=== PATIENT | female | born 1960 | race Caucasian/White ===

== ENCOUNTER 2020-09-22 09:08 | Emergency (ER) | payer OTHER, SELFPAY ==
[2020-09-22 09:14] VITALS: BP 126/55; PULSE 84; RESP 16; TEMP 36.5; O2SAT 98
--- NOTE | 2020-09-22 10:10 | ED.URI ---
HPI - URI/Sore Throat General Chief Complaint: Upper Respiratory Infection Stated Complaint: sinus hoyt/sinus pressure Source: patient and RN notes reviewed Limitations: no limitations History of Present Illness HPI Narrative: The patient, non-smoker/nondrinker, presents with respiratory symptoms. Patient states she has about half week history of frontal maxillary/sinus headache, dry cough, congestion. No fever measured, CP, loss of taste/smell, S OB, calf pain/edema, precordial chest pain, sore throat, earache, known RAD, wheezing/sneezing, prior covid. She reports has been exposed to a patient positive for Covid at a recent family get together last week; symptoms are mild, she would like a refill of her inhaler for the cough Related Data Home Medications Medication Instructions Recorded Confirmed desvenlafaxine succinate 25 mg 12.5 mg PO DAILY tablet 10/15/19 09/22/20 tablet,extended release 24 hr Allergies Allergy/AdvReac Type Severity Reaction Status Date / Time codeine AdvReac Mild Nausea Verified 09/22/20 09:32 Review of Systems Review of Systems: Narrative: General/Constitutional: No weight loss,fever Eyes: N0: Redness,discharge Ears/Nose/Throat: No: Epistaxis,ear discharge Respiratory: Denies: Hemoptysis Gastrointestinal: No Vomiting, Bleeding-rectal Skin: No Lumps, eruption Neurologic: No Focal Weakness,Sz Hematologic: Denies: Petechiae/Purpura Psychiatric: No: Suicida ideationl All Other Systems: Reviewed and Negative [facility] Past Medical History Medical History (Updated 09/22/20 @ 09:46 by Willy Carson MD) Anxiety and depression Breast cancer GERD (gastroesophageal reflux disease) HX: breast cancer UTI (urinary tract infection) Surgical History Surgical History H/O mastectomy History of cholecystectomy History of partial thyroidectomy History of tonsillectomy Hx of appendectomy Family History Family History Mother Cerebrovascular accident Father , Age 57 Cancer No problems noted. Grandparent , Stomach Cancer Stomach cancer Grandparent , Age 77 from Emphysema No problems noted. Grandparent , Age 93 from Old Age No problems noted. Grandparent , Unknown Age or Cause No problems noted. Social History Social History Smoking status: Never smoker Alcohol intake: current Substance use: never Comments At time of signature, agree with nursing past medical, surgical, social and family history. There is no relevant family history pertinent to the presenting complaint Exam Narrative: Exam Narrative: General Appearance: Well appearing, Conjunctiva clear Ears: Auditory canal normal, Nose: Rhinorrhea, Mucousal erythema Mouth/Throat: MM moist, Uvula midline, Pharyngeal erythema Supple, No adenopathy Respiratory: No respiratory distress, Breath sounds equal, Clear to auscultation Musculoskeletal: Normal strength Skin: Warm, Dry Neurological: A&O x3, Normal affect Course Vital Signs Vital signs: Vital Signs Temperature 97.7 F 09/22/20 09:14 Pulse Rate 84 09/22/20 09:14 Respiratory Rate 16 09/22/20 09:14 Blood Pressure 126/55 L 09/22/20 09:14 Pulse Oximetry 98 09/22/20 09:14 Temperature 97.7 F 09/22/20 09:14 Pulse Rate 84 09/22/20 09:14 Respiratory Rate 16 09/22/20 09:14 Blood Pressure 126/55 L 09/22/20 09:14 Pulse Oximetry 98 09/22/20 09:14 Discharge Plan Discharge Clinical Impression: Upper respiratory infection Qualifiers: URI type: unspecified URI Qualified Code(s): J06.9 - Acute upper respiratory infection, unspecified Patient Disposition: Home, Self-Care Condition: Stable Instructions: Antibiotic Form Prescriptions:
== END 2020-09-22 09:51 | disposition home or self-care (01) ==
PROVIDERS: Emergency Provider Emergency Medicine; PCP Internal Medicine
DX: J06.9 Acute upper respiratory infection, unspecified (principal); Z20.828 Contact with and (suspected) exposure to other viral communicable diseases; K21.9 Gastro-esophageal reflux disease without esophagitis; F41.9 Anxiety disorder, unspecified; F32.9 Major depressive disorder, single episode, unspecified; Z85.3 Personal history of malignant neoplasm of breast; Z90.10 Acquired absence of unspecified breast and nipple; Z90.711 Acquired absence of uterus with remaining cervical stump
CPT/HCPCS: 99213; G0463

== ENCOUNTER 2020-09-22 09:46 | Outpatient (NON) | payer OTHER, SELFPAY ==
[2020-09-22 22:01] LABS: SARS-CoV-2 RNA PCR Positive
== END 2020-09-22 09:47 ==
LOC: ANHCOVIDDT 09:47
PROVIDERS: PCP Internal Medicine; Visit Provider Emergency Medicine
DX: U07.1 COVID-19 (principal)
CPT/HCPCS: 87635; C9803; U0003

== ENCOUNTER → 2021-03-14 01:18 | Outpatient (CLI) | payer OTHER, SELFPAY ==
[2021-03-14 17:56] LABS: SARS-CoV-2 RNA PCR Negative
== END ==
PROVIDERS: PCP Internal Medicine; Visit Provider Surgery
DX: Z01.812 Encounter for preprocedural laboratory examination (principal); Z20.822 Contact with and (suspected) exposure to COVID-19
CPT/HCPCS: C9803; U0003; U0005

== ENCOUNTER 2021-03-14 09:57 | Outpatient (CLI) | payer OTHER, SELFPAY | END 2021-03-14 09:58 | disposition home or self-care (01) | PROVIDERS: PCP Internal Medicine; Visit Provider Surgery | DX: K43.2 Incisional hernia without obstruction or gangrene (principal); Z01.818 Encounter for other preprocedural examination | CPT/HCPCS: 36415; 86850; 86900; 86901 ==

== ENCOUNTER 2021-03-16 06:31 | Day surgery (SDC) | payer OTHER, SELFPAY ==
[2021-03-05 12:09] VITALS: BMI 34.3
--- NOTE | 2021-03-13 09:05 | WPDANESEPPF ---
Anes - Initial Pre Proc Eval Procedure: Operation Date: 03/16/21 07:30 Proposed Procedures p Robotic Assisted Laparoscopic Incisional Hernia Repair - Heydi Fallon MD Date/Time: 03/13/21 09:05 Surgeon: Heydi Fallon MD Pre Op Diagnosis: incisional hernia Patient Data Age: 60 Gender: F Height: 1.59 m Weight: 86.64 kg Allergies Allergy/AdvReac Type Severity Reaction Status Date / Time codeine AdvReac Mild Nausea Verified 03/16/21 06:17 Home Medications Medication Instructions Recorded Confirmed Type calcium carbonate 500 mg calcium 500 mg PO DAILY 02/26/21 03/16/21 History (1,250 mg) tablet cetirizine 10 mg tablet 10 mg PO DAILY PRN 02/26/21 03/16/21 History cholecalciferol (vitamin D3) 25 25 mcg PO DAILY 02/26/21 03/16/21 History mcg (1,000 unit) capsule multivitamin 1 tablet PO DAILY 02/26/21 03/16/21 History Patient hx anesthesia problems: none Family hx anesthesia problems: none [facility] Past Medical History Medical History (Updated 03/13/21 @ 09:06 by Jaime Wade MD) Anxiety and depression Breast cancer GERD (gastroesophageal reflux disease) HX: breast cancer Obesity UTI (urinary tract infection) Surgical History Surgical History H/O mastectomy H/O: hysterectomy History of bilateral breast implants History of bunionectomy History of cholecystectomy History of knee surgery History of partial thyroidectomy History of tonsillectomy Hx of appendectomy Family History Family History Mother Cerebrovascular accident Breast cancer Heart disease Hypertension Father , Age 57 Cancer Acute myocardial infarction Grandparent , Stomach Cancer Stomach cancer Grandparent , Age 77 from Emphysema No problems noted. Grandparent , Age 93 from Old Age No problems noted. Grandparent , Unknown Age or Cause No problems noted. Social History Social History Smoking status: Never smoker Alcohol intake: current Alcohol use details: VERY RARE Substance use: never Substance use type: does not use Living arrangements: with family Spiritual care concerns: No Anes - Eval Final PreProcedure Day of Procedure 03/13/21 09:05 Patient weight: obese Heart: regular rate and rhythm Lungs: clear to auscultation and normal air movement Airway: Mallampati scale class II Neurological: alert and oriented Last oral intake: >/= 8 hours ASA classification: III Emergent: no Anesthetic plan: proceed Anesthesia type and monitoring: general ETT Informed Consent: The patient's anesthetic plan and its attendant risks and benefits were discussed with the patient/family/POA. Questions were solicited and answers provided to the satisfaction of the patient/family/POA.
[2021-03-16] VITALS (10 sets, daily range): BP systolic 99–133; BP diastolic 59–78; PULSE 49–79; RESP 10–13; TEMP 35.9–36.2; O2SAT 94–98
[2021-03-16] MEDS: LACTATED RINGERS 1,000 ML 30 ML IV CONT ×2 (06:36→09:55)
[2021-03-16] MEDS: ACETAMINOPHEN 500 MG TABLET 1000 MG PO (06:43)
[2021-03-16] MEDS: KETOROLAC 15 MG/ML VIAL (*BKC) IV PUSH (06:44)
--- NOTE | 2021-03-16 07:23 | WPDHPUPDATE1 ---
History and Physical Update Update Date/Time: 03/16/21 07:23 History and Physical has been reviewed, including an updated exam of the patient. There are NO changes in the patient's condition. Risks, benefits, and alternatives have been discussed and questions answered. Patient agrees to proceed with procedure.
[2021-03-16] MEDS: ceFAZolin 2 GM/D5W 50 ML 2 GM/50 ML BAG IVPB (07:34)
[2021-03-16] MEDS: BUPIVACAINE/EPINEPHRINE 0.5% 10 ML VIAL 30 ML INFILTRATE (09:51)
--- NOTE | 2021-03-16 09:56 | P.OP_ITS ---
Procedure Note - Detailed Date of Procedure 03/16/21 Pre-op Diagnosis incisional hernia Post-op Diagnosis same Procedure Performed robotic assisted incisional hernia repair with mesh Surgeon Heydi Fallon MD Anesthesia general Indications 60 y/o F c enlarging incisional hernia that is now symptomatic Findings supraumbilical incisional hernia c incarcerated fat Description of Procedure The patient was taken the operating room placed in the supine position. After adequate induction of general anesthesia, the patient was prepped and draped in normal sterile fashion. A time-out was then done to verify the patient's identity as well as the procedure being performed. I began by making a 5 mm incision in the left upper quadrant. Through this, a Veress needle was placed into the peritoneal cavity and CO2 gas was insufflated. After adequate pneumoperitoneum was achieved, a 5 mm trocar was placed through this incision. I then placed the laparoscope through this trocar site and under direct visualization I placed a 8 mm port in the left mid abdomen as well as an additional 8 mm port in the left lower abdomen. I then moved the camera to the lower port and replaced the 5 mm port with a 12 mm airport. The robot was then docked to the 3 port sites. I then went to the robotic console. The bowel was noted to be very distended and did cause some issues with visualization throughout the case. I began by identifying the hernia. A moderate-sized incarcerated hernia was noted in the supraumbilical region. Using graspers, I was able to reduce this hernia. The hernia was noted to just contain pre peritoneal fat. Once reduced, I also reduced and dissected out the hernia sac. I then closed the approximately 3 cm defect with 0 strata fix suture. I then placed a 15 x 10 cm symbotex mesh into the abdominal cavity. The Vicryl stitch was placed in the middle of the mesh and brought up centering the mesh over the defect. Once this was done, I used 2 0 V lock suture x 2 to circumferentially suture the mesh to the abdominal. Once the mesh was completely sutured in, I was happy with our tension-free repair. The mesh was noted to have good overlap of the defect. At this point, the robot was undocked and all ports were removed. I then closed the 12 mm port site with an 0 Vicryl [id number] suture at the fascial level. All port sites were then closed with 4 O Monocryl subcuticular suture. The patient tolerated the procedure well, is extubated in the operating room postoperative, OB transferred to the recovery room in stable condition. Implants 15 x 10 cm symbotex mesh Estimated Blood Loss 10 Drains No Packing No Pathology none sent Complications No immediate complications Condition stable Disposition PACU
[2021-03-16] MEDS: fentaNYL CITRATE INJ (*CRX) 100 MCG/2 ML VIAL 25 MCG IV PUSH ×4 (10:15→10:43)
--- NOTE | 2021-03-16 10:22 | SUR.PHASEI ---
Addendum entered by Radha Espinosa RN 03/16/21 10:30: (simple mask) Original Note: O2 removed at 1020.
[2021-03-16] MEDS: HYDROmorphone HCL INJ (*CRX) 1 MG/ML SYR 0.25 MG IV PUSH ×2 (10:50→10:56)
[2021-03-16] MEDS: oxyCODONE HCL (*CRX) 5 MG TAB IR PO (11:35)
== END 2021-03-16 12:23 | disposition home or self-care (01) ==
PROVIDERS: PCP Internal Medicine; Visit Provider Surgery
PROC: (CPT 49655; principal; 2021-03-16 07:30)
DX: K43.0 Incisional hernia with obstruction, without gangrene (principal); F41.8 Other specified anxiety disorders; Z85.3 Personal history of malignant neoplasm of breast; K21.9 Gastro-esophageal reflux disease without esophagitis; E66.9 Obesity, unspecified; Z68.35 Body mass index [BMI] 35.0-35.9, adult
CPT/HCPCS: 49655; S2900; A9270; C1781; J0330; J0690; J1100; J1170; J1885; J2250; J2405; J2704; J2710; J3010; J7030; J7120

== ENCOUNTER 2023-01-14 19:18 | Emergency (ER) | payer OTHER, SELFPAY ==
[2023-01-14] VITALS (7 sets, daily range): BP systolic 114–134; BP diastolic 79–86; PULSE 78–87; RESP 17–18; TEMP 36.8; O2SAT 97–99
--- NOTE | ~2023-01-14 | CT_ITS ---
EXAMINATION: CT brain wo con INDICATION: Headache COMPARISON: None TECHNIQUE: Standard unenhanced head CT. The dose-length product (DLP) was 605.33 mGy-cm. The mA was a djusted according to patient size. Iterative reconstruction technique was employed. FINDINGS: There is no intracranial hemorrhage, acute infarction, or abnormal mass lesion. The ventric les are normal. There is no abnormal mass effect or midline shift. The pate-white matter differentiat ion is normal. The basal cisterns are patent. The orbits are normal. There is mild mucosal thickening of the paranasal sinuses. IMPRESSION: 1. No acute intracranial abnormality. Reviewed, dictated and finalized at location A.
--- NOTE | ~2023-01-14 | XR_ITS ---
EXAMINATION: XR wrist RT min 3V INDICATION: Right wrist pain TECHNIQUE: Four views of the right wrist are obtained on five radiographs. COMPARISON: None available FINDINGS: Bone alignment is normal. There is no fracture. There is mild osteoarthritis at the first c arpometacarpal joint. The soft tissues are unremarkable. IMPRESSION: 1. No acute osseous abnormality. Reviewed, dictated and finalized at location A.
--- NOTE | ~2023-01-14 | XR_ITS ---
EXAMINATION: XR shoulder RT min 2V INDICATION: Right shoulder pain TECHNIQUE: Four views of the right shoulder are submitted. COMPARISON: None FINDINGS: Normal alignment. No fracture. There is mild osteoarthritis of the glenohumeral and acromio clavicular joints. Soft tissues are unremarkable. IMPRESSION: 1. No acute osseous abnormality. Reviewed, dictated and finalized at location A.
--- NOTE | ~2023-01-14 | CT_ITS ---
EXAMINATION: CT cervical spine wo con DATE: 01/15/2023 00:15 INDICATION: Head injury TECHNIQUE: Computed tomography (CT) of the cervical spine was performed without intravenous contrast. The dose-length product (DLP) was 466.08 mGy-cm. Automated exposure control and iterative reconstruc tion technique were employed. COMPARISON: None FINDINGS: There are 2 mm of retrolisthesis of C4 on C5. The vertebral body heights are normal. There is severe loss of intervertebral disc space height from C4-5 through C7-T1. The odontoid process is i ntact. There is no fracture. There is multilevel moderate facet and uncovertebral joint osteoarthriti s. There is moderate central canal stenosis at C4-5. Dependent atelectasis is noted. IMPRESSION: 1. Moderate to severe cervical spondylosis without acute findings. Reviewed, dictated and finalized at location A.
--- NOTE | ~2023-01-14 | CT_ITS ---
EXAMINATION: CT abdomen pelvis w con INDICATION: Right-sided abdominal pain TECHNIQUE: Computed tomographic images of the abdomen and pelvis were obtained after the administrati on of 100 cc of Omnipaque 350 intravenous contrast. The dose-length product (DLP) was 1439.74 mGy-cm. Automated exposure control and iterative reconstruction technique were employed. COMPARISON: 03/15/2019 FINDINGS: Minimal dependent atelectasis is present in the lung bases. The heart size is normal. There appear to be changes of bilateral mastectomy with implant reconstruction. The liver, spleen, pancrea s, and adrenal glands are normal. There is a 2 mm nonobstructing stone of the right kidney. The left kidney is unremarkable.. A retroaortic left renal vein is noted. No pathologically enlarged abdominal or pelvic lymph nodes are identified. No free intraperitoneal gas or evidence of bowel obstruction. There is chronic moderate to severe thoracic and lumbar spondylosis. A fat-containing umbilical herni a is noted. IMPRESSION: 1. No acute abnormality of the abdomen or pelvis. Reviewed, dictated and finalized at location A.
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
[2023-01-14 23:15] LABS: Basophils Percent Auto 0.3 % (0.2-1.2); Eosinophils Percent Auto 0.5 % (0-4.4); Hematocrit 39.9 % (37.0-47.0); Hemoglobin 13.4 g/dL (12.0-15.0); Immature Granulocyte Absolute 0.02 K/mm3 (0.00-0.031); Immature Granulocyte Percent A 0.2 % (0-0.5); Lymphocytes Absolute Auto 1.87 K/mm3 (0.9-3.2); Lymphocytes Percent Auto 21.2 % (18.3-44.2); Mean Corpuscular HGB Conc 33.6 g/dl (32-36); Mean Corpuscular Hemoglobin 31.7 pg (26-34); Mean Corpuscular Volume 94.3 fl (80-100); Mean Platelet Volume 10.5 fl (7.4-10.4); Monocytes Absolute Auto 0.6 K/mm3 (0.1-0.6); Monocytes Percent Auto 6.4 % (2.6-8.5); Neutrophils Absolute Auto 6.3 K/mm3 (1.3-6.7); Neutrophils Percent Auto 71.4 % (45.5-73.1); Platelet Count Result 199 k/mm3 (150-375); Red Blood Count 4.23 M/mm3 (4.2-5.4); Red Cell Distribution Width 14.1 % (11.5-14.5); White Blood Count 8.8 K/mm3 (4.5-10.0)
[2023-01-14] MEDS: ORPHENADRINE CITRATE 100 MG TABLET.ER PO (23:29)
[2023-01-14 23:30] LABS: Alanine Aminotransferase 33 U/L (6-35); Albumin Level 4.4 g/dL (3.5-5.1); Alkaline Phosphatase 83 U/L (38-126); Anion Gap 8 mmol/L (8-16); Aspartate Amino Transferase 32 U/L (14-36); Bilirubin,Total 0.5 mg/dL (0.2-1.3); Blood Urea Nitrogen 19 mg/dL (7-17); Calcium 9.4 mg/dL (8.4-10.2); Carbon Dioxide 23 mmol/L (22-30); Chloride 106 mmol/L (98-107); Estimated CRCL calculation 72 ml/min; Estimated Glomerular Filt Rate > 60; Glucose 106 mg/dL (65-110); Potassium 4.2 mmol/L (3.4-5.0); Sodium 137 mmol/L (137-145)
--- NOTE | 2023-01-14 23:34 | PC.NURSE ---
Report received from HEMANT Hughes. Assumed care of patient at this time.
[2023-01-15] VITALS (8 sets, daily range): BP systolic 119–122; BP diastolic 72–73; PULSE 70–73; RESP 16–17; O2SAT 95–98
--- NOTE | 2023-01-15 02:56 | PC.NURSE ---
C-collar removed by PA.
[2023-01-15] MEDS: ACETAMINOPHEN 500 MG TABLET 1000 MG PO (03:08)
== END 2023-01-15 03:55 | disposition home or self-care (01) ==
PROVIDERS: Emergency Provider Physician Assistant; PCP Internal Medicine
DX: S13.4XXA Sprain of ligaments of cervical spine, initial encounter (principal); S60.811A Abrasion of right wrist, initial encounter; K21.9 Gastro-esophageal reflux disease without esophagitis; S49.91XA Unspecified injury of right shoulder and upper arm, initial encounter; E66.9 Obesity, unspecified; Z68.34 Body mass index [BMI] 34.0-34.9, adult; Z85.3 Personal history of malignant neoplasm of breast; Z87.440 Personal history of urinary (tract) infections; Z90.10 Acquired absence of unspecified breast and nipple; Z90.710 Acquired absence of both cervix and uterus; E89.0 Postprocedural hypothyroidism; M47.812 Spondylosis without myelopathy or radiculopathy, cervical region; V53.5XXA Driver of pick-up truck or van injured in collision with car, pick-up truck or van in traffic accident, initial encounter; W22.11XA Striking against or struck by driver side automobile airbag, initial encounter
CPT/HCPCS: 36415; 70450; 72125; 73030; 73110; 74177; 80053; 85025; 99284; A4565; A9270; L0140; Q9967

== ENCOUNTER 2025-02-26 00:40 | Day surgery (SDC) | payer MEDICARE, SELFPAY ==
[2025-02-22 16:41] VITALS: BMI 34.6
--- NOTE | ~2025-02-26 | BM_ITS ---
EXAMINATION: CCL bone marrow asp w bx diag ORDER COMPLETED DATE: 02/26/2025 09:59 INDICATION: Pancytopenia TECHNIQUE: A time-out was performed to verify the patient's name, date of , and procedure to b e performed. The procedure including the risks and benefits was discussed with the patient. Risks dis cussed included bleeding, infection, nerve injury and allergic reaction. The patient understood the r isks and agreed to proceed. The skin overlying the right posterior iliac spine was prepped and draped in usual sterile fashion. Anesthetic was administered with 1% lidocaine subcutaneously. Moderate co nscious sedation was achieved with 50 mcg fentanyl IV and 1 mg of Versed IV. An 11 gauge needle was i nserted into the right ilium with fluoroscopic guidance. Bone marrow was aspirated. An 8 gauge needle was then inserted into the right ilium with fluoroscopic guidance. A core bone marrow biopsy was obt ained. The needle was removed and the entry site was cleaned and dressed. There were no immediate co mplications. A total of 36 fluoroscopic images were recorded. Fluoroscopy exposure time was 0.1 minut es. Total DAP was 152 mGycm^2. FINDINGS: Real-time fluoroscopy demonstrates the biopsy needle tip overlying the right posterior hanh c spine. IMPRESSION: 1. Successful fluoroscopic guided bone marrow aspiration. 2. Successful fluoroscopic guided bone marrow biopsy. Reviewed, dictated and finalized at location A.
--- OUTSIDE RECORDS SUMMARY | 2025-02-26 00:43 | XMS_ITS | Encounter Summary ---
Author Organization [facility] Healthcare Address [address] [place] [address] Care Team Providers Care In Store Representative Name Role Phone Juarez Corado MD Primary Care Provider + [phone] Santos Fernandes MD Unavailable [phone] Jenna Sheridan Unavailable [phone] Nydia Nunez NP Unavailable [phone] Gerard Alexander MD Unavailable [phone] Encounter Details Date Type Department Care Team (Late st Contact Info) Description 10/18/2024 Orders Only [facility] Medical [facility] [address] [place] [id number] Scanning, Provider Social History Tobacco Use Types Packs/Day Years Used Date Smoking Tobacco: Never Smokeless Tobacco: Never PHQ-2 Answer Date Recorded PHQ-2 Total Score (If total score is 3 or more points, staff should administer the PHQ-9) 1 05/10/2024 Comments No Sex and Gender Information Value Date Recorded Sex Assigned at Not on file Legal Sex Female 7:29 PM MANAGER LOCATION Gender Identity Not on file Sexual Orientation Not on file documented as of this encounter Plan of Treatment Not on file documented as of this encounter Procedures Procedure Name Priority Date/Time Associated Diagnosis Comments SCAN - LABS 10/18/2024 documented in this encounter Results * SCAN - LABS (10/18/2024) us Provider Scanning Final Result documented in this encounter Visit Diagnoses Not on filedocumented in this encounter Care Teams In Store Representative Relationship Specialty Start Date End Date Juarez Corado MD PCP - General 02/11/17 Santos Fernandes MD [address] [place] [address] DR [facility] [address] [place] [address] Surgeon Orthopedic Surgery 11/08/24 Jenna Sheridan PA [address] [place] [address] [address] Orthopedic Surgery 11/08/24 Nydia Nunez NP [address] [place] [address] Nurse Practitioner Nurse Practitioner 11/08/24 Gerard Alexander MD [address] [place] [id number] Referring Physician Plastic Surgery 11/08/24 documented as of this encounter
--- OUTSIDE RECORDS SUMMARY | 2025-02-26 00:43 | XMS_ITS | Encounter Summary ---
Author Organization [facility] Address [address] [place] [address] Phone Care Team Providers Care Music Therapy Specialist Name Role Phone Juarez Corado MD Primary Care Provider + [phone] Santos Fernandes MD Unavailable [phone] Jenna Sheridan Unavailable [phone] Nydia Nunez NP Unavailable + [phone] Gerard Alexander MD Unavailable [phone] Encounter Details Date Type Department Care Team (Late st Contact Info) Description 10/17/2020 Orders Only [facility] [address] [place] [address] Scanning, Provider Social History Tobacco Use Types Packs/Day Years Used Date Smoking Tobacco: Never Assessed Comments Unknown Sex and Gender Information Value Date Recorded Sex Assigned at Not on file Legal Sex Female 7:29 PM [employer] Gender Identity Not on file Sexual Orientation Not on file documented as of this encounter Plan of Treatment Not on file documented as of this encounter Procedures Procedure Name Priority Date/Time Associated Diagnosis Comments SCAN - LABS 10/17/2020 documented in this encounter Results * SCAN - LABS (10/17/2020) us Provider Scanning Final Result documented in this encounter Visit Diagnoses Not on filedocumented in this encounter Care Teams Music Therapy Specialist Relationship Specialty Start Date End Date Juarez Corado MD PCP - General 02/11/17 Santos Fernandes MD [address] [facility] [address] [place] [facility] [address] [place] [address] Surgeon Orthopedic Surgery 11/08/24 Jenna Sheridan PA [address] [facility] [address] [place] [address] Orthopedic Surgery 11/08/24 Nydia Nunez NP [address] [place] [address] Nurse Practitioner Nurse Practitioner 11/08/24 Gerard Alexander MD [address] [address] Referring Physician Plastic Surgery 11/08/24 documented as of this encounter
--- OUTSIDE RECORDS SUMMARY | 2025-02-26 00:43 | XMS_ITS | Clinical Summary ---
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 antibodies. Supplemental molecular testing will be automatically performed to determine infection status in accordance with current CDC screening recommendations. Reactive: Positive for HCV antibodies. This may represent current or past HCV infection. Supplemental molecular testing will be automatically performed to determine current infection status in accordance with current CDC screening recommendations. Interpretive data was last revised on 2019. Blood 06/09/2021 3:35 PM CDT 06/09/2021 8:10 PM CDT Juarez Corado MD LAB MICROBIOLOGY - GENERAL ORDERABLES Final Result [facility] [address] [place] [address] * COLONOSCOPY (05/10/2013 12:00 AM CDT) Anatomical Region Laterality Modality Other Narrative 05/10/2013 12:00 AM CDT Ordered by an unspecified provider. Procedure Note ProviderNii MD - 05/10/2013 12:00 AM CDT PROCEDURE REPORT Patient: BALDEV RAMOS Account: [id number] Room No: : 1960 Patient Type: [facility] Attend.: Jakob Wick M.D. Admit Date: 05/10/2013 Dict.: Jakob Wick M.D. Disch. Date: 05/10/2013 NAME OF PROCEDURE: COLONOSCOPY HISTORY: 53-year-old female who presents for screening colonoscopy. PHYSICAL EXAMINATION: Obese female. Lungs are clear. Cardiovascular examis unremarkable. DESCRIPTION OF PROCEDURE: Colonoscopy was performed with the Olympusvideo endoscope. The patient was premedicated by Anesthesia. On digital examno abnormalities were palpable. We inserted the endoscope and advanced it tothe cecum. The colon was well-prepped and visualized. It was very tortuousand somewhat technically challenging; nevertheless, we did obtain good visualization of the entire colon. No abnormalities were noted. Shetolerated the procedure without difficulty. POSTOPERATIVE DIAGNOSIS: Normal colonoscopy. Jakob Wick M.D. DR/ms TD: 05/11/2013 15:57 CC: Juarez Corado M.D. Authenticated by Jakob Wick MD On 05/12/2013 11:16:39 AM Historical Provider MD ENDOSCOPY PROCEDURES Kathryn l Result from Last 3 Months or Most Recently Relevant to Health Maintenance Insurance [employer] [facility] AETNA MEDICARE Care Teams Control Board Operator Relationship Specialty Start Date End Date Juarez Corado MD PCP - General 02/11/17 Santos Fernandes MD [address] [place] [address] DR BETSEY Guallpa [address] [address] Surgeon Orthopedic Surgery 11/08/24 Jenna Sheridan PA [address] [place] [address] [address] Orthopedic Surgery 11/08/24 Nydia Nunez NP [address] [place] [address] Nurse Practitioner Nurse Practitioner 11/08/24 Gerard Alexander MD [address] [place] [address] Referring Physician Plastic Surgery 11/08/24
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
--- OUTSIDE RECORDS SUMMARY | 2025-02-26 00:43 | XMS_ITS | Clinical Summary ---
Author Organization [facility] Address [address] [place] [address] Phone Care Team Providers Care Flight Manager Name Role Phone Juarez Corado MD Primary Care Provider Allergies Active Allergy Reactions Criticality Noted Date Comments Codeine Nausea 09/03/2016 Sulfa Antibiotics Unknown 12/01/2020 Medications CALCIUM PO Take by mouth daily. Active Cholecalciferol (VITAMIN D PO) Take by mouth daily. Active CETIRIZINE HCL PO Take 10 mg by mouth daily. Active dicyclomine (BENTYL) 20 MG Tablet Take 1 Tablet by mouth every 6 hours. 30 Tablet 07/21/2021 Active fluticasone-mara nterol (Breo Ellipta) 100-25 MCG/INH AEROSOL POWDER, BREATH ACTIVATED as needed. Active ondansetron (ZOFRAN-ODT) 8 MG TABLET DISPERSIBLE Take 8 mg by mouth as needed. 07/23/2021 Active tiZANidine (ZANAFLEX) 2 MG Tablet 2 times daily as needed. 07/20/2021 Active Active Problems No known active problems Family History Medical History Relation Name Comments No Known Problems Daughter 1 Anxiety disorder Daughter 2 Depression Daughter 2 Heart Attack Father Hypertension Father Liver Cancer Father No Known Problems Maternal Grandfather Arthritis Maternal Grandmother Dementia Maternal Grandmother Alzheimer's Disease Mother Breast Cancer Mother Congestive Heart Failure Mother Stroke Mother Emphysema Paternal Grandfather Stomach Cancer Paternal Grandmother Leukemia/Lymphoma Sister AML Relation Name Status Comments Daughter 1 Alive Daughter 2 Alive Father Maternal Grandfather Maternal Grandmother Mother Paternal Grandfather Paternal Grandmother Sister Social History Tobacco Use Types Packs/Day Years Used Date Smoking Tobacco: Never Smokeless Tobacco: Never Alcohol Use Standard Drinks/Week Comments No 0 (1 standard drink = 0.6 oz pur e alcohol) Sexually Active Control Partners Comments Not Currently Male Comments No Sex and Gender Information Value Date Recorded Sex Assigned at Not on file Legal Sex Female 11:42 PM CDT Gender Identity Not on file Sexual Orientation Not on file Last Filed Vital Signs Vital Sign Reading Time Taken Comments Blood Pressure 103/63 07/30/2021 12:30 PM CDT Pulse 67 07/30/2021 12:30 PM CDT Temperature 36 C (96.8 F) 07/30/2021 10:59 AM CDT Respiratory Rate 12 07/30/2021 12:30 PM CDT Oxygen Saturation 99% 07/30/2021 12:30 PM CDT Inhaled Oxygen Concentration - - Weight 84.4 kg (186 lb) 07/23/2021 3:00 PM CDT Height 160 cm (5' 3) 07/23/2021 3:00 PM CDT Body Mass Index 32.95 07/23/2021 3:00 PM CDT Plan of Treatment Health Maintenance Due Date Last Done Comments Hepatitis C Virus (HCV) Screening 1960 Cologuard 2009 Immunochemical Fecal Occult Blood 2009 Pneumococcal Immunization (5 0+ years) (1 of 1 - PCV) 2009 Influenza Immunization (#1) 06/03/202406/03, 06/22/2019 SARS-COV-2 Immunization ( season) 2024 09/28/2021, 12/13/2020, 11/15/2020 Colonoscopy 07/30/2031 07/30/2021, 07/30/2021 Colorectal Cancer Screening 07/30/2031 Respiratory Syncytial Virus (RSV) Immunization (Adult) (1 - 1-dose 75+ series) 2034 07/30/2021 DTaP/Tdap/Td Immunization Discontinued 08/22/2018 TdaP Immunization Completed 08/22/2018 Zoster Immunization Completed 10/02/2019, 06/22/2019 Hepatitis B Immunization Aged Out No longer eligible based on patient's age to complete this topic Meningococcal Immunization (ACWY) Aged Out No longer eligible based on patient's age to complete this topic Rotavirus Immunization Aged Out No lo nger eligible based on patient's age to complete this topic Insurance [facility] Care Teams Flight Manager Relationship Specialty Start Date End Date Juarez Corado MD [address] [place] [address] PCP - General Internal Medicine 07/21/21
--- OUTSIDE RECORDS SUMMARY | 2025-02-26 00:43 | XMS_ITS | Clinical Summary ---
Author Organization [facility] Address [address] [place] [address] Care Team Providers Care Multiple Resaw Operator Name Role Phone Jakob Holder DO Primary Care Provider [phone] Source Comments [facility],non-owned Affiliates and Associated Physician Practices is amultiple site organization consisting of ambulatory clinics and hospital sitesin [place], [place], [place] and [place]. This disclosure is being madepursuant to the Care Everywhere program and may not contain all information available regarding this patient. Last updated 18.[facility] Allergies Active Allergy Reactions Criticality Noted Date Comments Codeine Nausea and/or Vomiting 05/13/2017 Medications * Be aware that medications may not be up to date on this document. Alwaysverify current medications with the patient. desvenlafaxine SR 24hr (PRISTIQ) 50 MG tablet Take 50 mg by mouth once daily Active ANASTROZOLE PO Activ e cetirizine (ZYRTEC) 10 MG tablet Take 10 mg by mouth once daily Active Multiple Vitamins-Mineral s (CENTRUM SILVER PO) Active LORazepam (ATIVAN PO) Active Family History Medical History Relation Name Comments CAD (Coronary Artery Disease) Father Cancer - Liver Father stomach Alzheimer's Disease Mother CAD (Coronary Artery Disease) Mother CHF Cancer - Breast Mother Relation Name Status Comments Father Mother Social History Tobacco Use Types Packs/Day Years Used Date Smoking Tobacco: Never Smokeless Tobacco: Never Comments No Sex and Gender Information Value Date Recorded Sex Assigned at Not on file Legal Sex Female 2:56 PM CDT Gender Identity Not on file Sexual Orientation Not on file Last Filed Vital Signs Vital Sign Reading Time Taken Comments Blood Pressure 136/84 05/13/2017 9:38 AM CDT Pulse 75 05/13/2017 9:38 AM CDT Temperature 37 C (98.6 F) 05/13/2017 9:38 AM CDT Respiratory Rate 16 05/13/2017 9:38 AM CDT Oxygen Saturation 98% 05/13/2017 9:38 AM CDT Inhaled Oxygen Concentration - - Weight 82.6 kg (182 lb) 05/13/2017 9:38 AM CDT Height 156.2 cm (5' 1.5) 05/13/2017 9:38 AM CDT Body Mass Index 33.83 05/13/2017 9:38 AM CDT Plan of Treatment Health Maintenance Due Date Last Done Comments BONE DENSITY TESTING 1960 COLOGUARD (AGES 45-75) - COL ON CA SCREENING 1960 COLON MONITORING 1960 COLONOSCOPY - COLON CA SCREENING 1959 CT COLONOGRAPHY - COLON CA SCREENING 1960 Colorectal Cancer Screening 1960 FIT - COLON CA SCREENING 1959 FLEX SIG - COLON CA SCREENING 1960 LIPID TESTING 1960 MAMMOGRAM 1959 HIV SCREENING 1974 HEPATITIS C SCREENING 04/19/1977 DTAP/TDAP/TD VACCINES (1 - Tdap) 1978 PNEUMOCOCCAL VACCINE 50+ (1 of 1 - PCV) 2009 ZOSTER VACCINE (1 of 2) 2009 SCREENING FOR DIABETES 05/13/2017 COVID-19 VACCINE ( - 2023-2 5 season) 2024 DEPRESSION SCREENING 10/03/2024 INFLUENZA VACCINE (Season Ended) 2025 Respiratory Syncytial Virus (RSV) Vaccine Pt: or over 60 yrs (1 - 1-dose 75+ series) 2034 HEPATITIS B VACCINE Aged Out No longe r eligible based on patient's age to complete this topic HIB VACCINE Aged Out No longer eligi ble based on patient's age to complete this topic HPV VACCINE Aged Out No longer eligi ble based on patient's age to complete this topic MENINGOCOCCAL (Group B) VACC INE SHARED DECISION-MAKING Aged Out No longer eligibl e based on patient's age to complete this topic MENINGOCOCCAL GROUPS A/C/Y/W VACCINE Aged Out No longer eligible b ased on patient's age to complete this topic Care Teams Multiple Resaw Operator Relationship Specialty Start Date End Date Jakob Holder DO PCP - General Internal Medicine 05/13/17
--- OUTSIDE RECORDS SUMMARY | 2025-02-26 00:43 | XMS_ITS | Encounter Summary ---
Author Organization [facility] Address [address] [place] [address] Phone Care Team Providers Care Forwarder Operator Name Role Phone Juarez Corado MD Primary Care Provider + [phone] Santos Fernandes MD Unavailable [phone] Jenna Sheridan Unavailable [phone] Nydia Nunez NP Unavailable + [phone] Gerard Alexander MD Unavailable [phone] Encounter Details Date Type Department Care Team (Late st Contact Info) Description 10/24/2019 Orders Only [facility] [address] [place] [place] [address] Scanning, Provider Social History Tobacco Use Types Packs/Day Years Used Date Smoking Tobacco: Never Assessed Comments Unknown Sex and Gender Information Value Date Recorded Sex Assigned at Not on file Legal Sex Female 7:29 PM [employer] Gender Identity Not on file Sexual Orientation Not on file documented as of this encounter Plan of Treatment Not on file documented as of this encounter Procedures Procedure Name Priority Date/Time Associated Diagnosis Comments SCAN - LABS 10/24/2019 documented in this encounter Results * SCAN - LABS (10/24/2019) us Provider Scanning Final Result documented in this encounter Visit Diagnoses Not on filedocumented in this encounter Care Teams Forwarder Operator Relationship Specialty Start Date End Date Juarez Corado MD PCP - General 02/11/17 Santos Fernandes MD [address] [facility] [address] LEGGETT B [facility] [address] [place] [address] Surgeon Orthopedic Surgery 11/08/24 Jenna Sheridan PA [address] [place] [address] [address] [place] [address] Orthopedic Surgery 11/08/24 Nydia Nunez NP [address] [facility] [address] Nurse Practitioner Nurse Practitioner 11/08/24 Gerard Alexander MD [address] [address] Referring Physician Plastic Surgery 11/08/24 documented as of this encounter
--- OUTSIDE RECORDS SUMMARY | 2025-02-26 00:43 | XMS_ITS | Encounter Summary ---
Author Organization [facility] Address [address] [place] [address] Phone Care Team Providers Care Gravity Prospecting Operator Name Role Phone Juarez Corado MD Primary Care Provider + [phone] Santos Fernandes MD Unavailable [phone] Jenna Sheridan Unavailable [phone] Nydia Nunez NP Unavailable + [phone] Gerard Alexander MD Unavailable [phone] Encounter Details Date Type Department Care Team (Late st Contact Info) Description 12/07/2018 Orders Only [facility] [address] [place] [address] Scanning, Provider Social History Tobacco Use Types Packs/Day Years Used Date Smoking Tobacco: Never Assessed Comments Unknown Sex and Gender Information Value Date Recorded Sex Assigned at Not on file Legal Sex Female 7:29 PM VENTILATION MECHANIC Gender Identity Not on file Sexual Orientation Not on file documented as of this encounter Plan of Treatment Not on file documented as of this encounter Procedures Procedure Name Priority Date/Time Associated Diagnosis Comments SCAN - RADIOLOGY/IMAGING 12/07/2018 documented in this encounter Results * SCAN - RADIOLOGY/IMAGING (12/07/2018) Anatomical Region Laterality Modality Other us Provider Scanning Final Result documented in this encounter Visit Diagnoses Not on filedocumented in this encounter Care Teams Gravity Prospecting Operator Relationship Specialty Start Date End Date Juarez Corado MD PCP - General 02/11/17 Santos Fernandes MD [address] [facility] [address] BETSEY Guallpa [facility] [address] [place] [address] Surgeon Orthopedic Surgery 11/08/24 Jenna Sheridan PA [address] [facility] [address] [place] [address] Orthopedic Surgery 11/08/24 Nydia Nunez NP [address] [place] [address] Nurse Practitioner Nurse Practitioner 11/08/24 Gerard Alexander MD [address] [facility] [address] [place] [address] Referring Physician Plastic Surgery 11/08/24 documented as of this encounter
--- OUTSIDE RECORDS SUMMARY | 2025-02-26 00:43 | XMS_ITS | Encounter Summary ---
Author Organization [facility] Address [address] [place] [address] Care Team Providers Care Ground Control Approach Technician Name Role Phone Juarez Corado MD Primary Care Provider + [phone] Santos Fernandes MD Unavailable [phone] Jenna Sheridan Unavailable [phone] Nydia Nunez NP Unavailable [phone] Gerard Alexander MD Unavailable [phone] Encounter Details Date Type Department Care Team (Late st Contact Info) Description 09/28/2024 Orders Only [facility] [address] [place] [id number] Scanning, Provider Social History Tobacco Use Types Packs/Day Years Used Date Smoking Tobacco: Never Smokeless Tobacco: Never PHQ-2 Answer Date Recorded PHQ-2 Total Score (If total score is 3 or more points, staff should administer the PHQ-9) 1 05/10/2024 Comments No Sex and Gender Information Value Date Recorded Sex Assigned at Not on file Legal 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 Gender Identity Not on file Sexual Orientation Not on file documented as of this encounter Plan of Treatment Not on file documented as of this encounter Procedures Procedure Name Priority Date/Time Associated Diagnosis Comments SCAN - RADIOLOGY/IMAGING 09/28/2024 documented in this encounter Results * SCAN - RADIOLOGY/IMAGING (09/28/2024) Anatomical Region Laterality Modality Other us Provider Scanning Final Result documented in this encounter Visit Diagnoses Not on filedocumented in this encounter Care Teams Ground Control Approach Technician Relationship Specialty Start Date End Date Juarez Corado MD PCP - General 02/11/17 Santos Fernandes MD [address] [place] [address] DR LEGGETT B [facility] [address] [place] [address] Surgeon Orthopedic Surgery 11/08/24 Jenna Sheridan PA [address] [place] [address] [address] [place] [address] Orthopedic Surgery 11/08/24 Nydia Nunez NP [address] [place] [address] Nurse Practitioner Nurse Practitioner 11/08/24 Gerard Alexander MD [address] [facility] [address] [place] [address] Referring Physician Plastic Surgery 11/08/24 documented as of this encounter
--- OUTSIDE RECORDS SUMMARY | 2025-02-26 00:44 | XMS_ITS | Data Portability ---
Author Organization [facility] [place] Address [address] [place] [address] [place] [address] Care Team Providers Care Lithographic Photographer Apprentice Name Role Phone RADHA MCKEON Primary Care Provider [phone] Assessment Encounter Date Assessment Date Assessment LastModified by Organization Details LastModified Time 01/11/2022 01/11/2022 Annual gynecological exam performed. Patient will come back in a year unless there are new symptoms. Not available 01/11/2022 10:07:34 03/25/2023 03/25/2023 Annual gynecological exam performed. Patient will come back in a year unless there are new symptoms. [email or web address] Not available 03/25/2023 12:20:57 12/03/2024 12/03/2024 Annual gynecological exam performed. Patient will come back in a year unless there are new symptoms. [email or web address] Not available 12/03/2024 11:46:26 Plan of Treatment Reminders Order Date Submit Date Provider Last Modified By Organization Details Last Modified Time Details Appointments None recorded. Lab pap, IG + HR HPV - HPV regardless but if HPV is positive need subtyping 16,18/45 2024 025 [facility] (Lab), [address], [place], [address], 21:35:36 urinalysis, dipstick 2020 021 [email or web address] [place], [address], [place], [address], 14:27:50 Referral None recorded. Procedures None recorded. Surgeries None recorded. Imaging None recorded. Medication Orders Valtrex 1 gram tablet 2022 [address]23 [id number] [place], [address], 5 11:49:44 lidocaine 4 % topical cream 2022 [address]23 [id number], [address] [place], [address], 5 11:49:52 Macrobid 100 mg capsule 2020 021 [id number], [address] [place], [address], 5 11:49:29 Pyridium 100 mg tablet 2020 021 [id number] [address] [place], [address], 16:02:15 Patient TargetsNo targets recorded. Patient InstructionsNo instructions recorded. Reason for Referral None Reported. Results Created Date Observation Date Name Description Value Unit Range Abnormal Flag Note LastModifiedBy Organization Detail LastModifiedTime 07/07/20 21 07/07/2021 CULTU RE: URINE result report SEE RESULT S BELOW abnormal Test: Cultu re: Urine Speci men Sourc e: Urine - Clean Catch Speci men Type: Urine Speci men Date: 2020 2:58 PM Resul t Date: 2020 12:04 AM Resul t Statu s: Final resul t Abnor mal: Yes Travis jackson Lab: [facility] [address] [facility] [address] Tel: CULTU RE ----- ----- ----- --- >100, 000 CFU/m l Esche radha a coli (Abno rmal) HERSON PTIBI LITY ----- ----- ----- --- Esche radha a coli METHO D BRIDGETT ----- ----- ----- ----- ----- ---- ----- ----- ----- ----- ----- AMIKA TOM <=16 ug/mL Susce ptibl e AMPIC ILLIN <=8 ug/mL Susce ptibl e AMPIC ILLIN /SULB ACTAM 2 ug/mL Susce ptibl e AZTRE ONAM <=4 ug/mL Susce ptibl e CEFAZ FRANCISCO <=2 ug/mL Susce ptibl e CEFEP BEATRICE <=2 ug/mL Susce ptibl e CEFOX ITIN <=8 ug/mL Susce ptibl e CEFTA ZIDIM E <=1 ug/mL Susce ptibl e CEFTR IAXON E <=1 ug/mL Susce ptibl e CIPRO FLOXA TOM <=1 ug/mL Susce ptibl e GENTA MICIN 2 ug/mL Susce ptibl e LEVOF LOXAC IN <=0.2 5 ug/mL Susce ptibl e MEROP ENEM <=1 ug/mL Susce ptibl e NITRO FURAN TOIN <=32 ug/mL Susce ptibl e PIPER ACILL IN/TA ZOBAC STANTON <=4 ug/mL Susce ptibl e TOBRA MYCIN 2 ug/mL Susce ptibl e TRIME THOPR IM/DAWSON LFAME THOXA ZOLE <=2 ug/mL Susce ptibl e Not Available [facility] (Lab) [address], [place], [address], 07/10/2021 01:06:48 07/07/2007/07/2021 urina lysis , dipst ick Leukocytes TRACE Not Available [facility] [address], [place], [address], 07/07/2021 14:25:37 07/07/20 21 07/07/2021 urina lysis , dipst ick Nitrite NEG Not Available [place] [address], [place], [address], 07/07/2021 14:25:37 07/07/2007/07/2021 urina lysis , dipst ick Urobilinogen NEG Not Available [facility] yesika [address], [place], [address], 07/07/2021 14:25:37 07/07/2007/07/2021 urina lysis , dipst ick Protein NEG Not Available [place] [address], [place], [address], 07/07/2021 14:25:37 07/07/2007/07/2021 urina lysis , dipst ick pH 5 Not Available [place] [address], [place], [address], 07/07/2021 14:25:37 07/07/2007/07/2021 urina lysis , dipst ick Specific [place] 1.025 Not Available [facility] juan a [address], [place], [address], 07/07/2021 14:25:37 07/07/2007/07/2021 urina lysis , dipst ick Ketone NEG Not Available [place] [address], [place], [address], 07/07/2021 14:25:37 07/07/2007/07/2021 urina lysis , dipst ick Bilirubin NEG Not Available [facility] [address], [place], [address], 07/07/2021 14:25:37 07/07/2007/07/2021 urina lysis , dipst ick Glucose NEG Not Available [place] [address], [place], [address], 07/07/2021 14:25:37 07/07/20 21 07/07/2021 urina lysis , dipst ick Appearance CLEAR Not Available [facility] [address], [place], [address], 07/07/2021 14:25:37 07/07/20 21 07/07/2021 urina lysis , dipst ick Color YELLOW Not Available [place] [address], [place], [address], 07/07/2021 14:25:37 01/12/20 22 01/11/2022 IMAGE GUIDE D PAP AND HPV REGAR DLESS image guided Pap, HPV regardless of Pap result SEE RESULT S BELOW CASE REPOR T: Cytol ogy Gynec ologi oksana Repor t Case: [id number] Autho junaid nur Provi deniz: Ja Field Colle cted: 01/11 1408 MASTER MERCHANDISER Order ing Locat ion: [place] Patho log[place] Recei jett: 01/12 0209 First Scree n: Jade Brunson , CT Rescr een: Lg Coelho, CT Speci men: Roxane raglandg Pap - Image d, Vagin a STATE MENT OF ADEQU ACY: Satis facto ry for evalu ation FINAL DIAGN OSIS: Negat guido for Intra epith elial Lesio n or Vani jim (NIL) . Atrop hic cell alexander alcantara. Elect bry oropeza frieda d by Lg Coelho, CT on 2021 at 1:15 PM ----- ----- ----- ----- ----- ----- ----- ----- ----- ----- ----- ----- ----- ----- ----- ----- ----- ---- HPV RESUL TS: HPV mRNA E6/E7 : No HPV mRNA Detec reagan NOTE: This high risk HPV mRNA assay detec ts fourt een high- risk HPV types (16, 18, 31, 33, 35, 39, 45, 51, 52, 56, 58, 59, 66, 68) witho ut diffe renti ation . COMME NT: Note: This speci men was revie wed by a Cytot echno logis t and/o r Patho logis t (as indic ated in this repor t) after evalu ation using the Thinp rep Imagi ng Syste m. CLINI [place] INFOR MATIO N: Menst rual Statu s: LMP (if appli cable ): Clini oksana Histo ry/Pr eviou s Pap: Type of Neopl guerda (if appli cable ): Signi fican t Clini oksana Findi ngs: Other Histo ry: Hormo valorie (if appli cable ): PAP EDUCA BRYAN L NOTE: The Pap Test is a scree shorty test with an inher ent false negat guido rate. Liqui d-bas ed sampl ing may decre ase, but will not elimi jatin, false negat guido resul ts. A negat guido resul t does not precl ude the prese nce and/o r devel opmen t of disea se, since the prese nce of abnor mal cells in the sampl e depen ds on the locat ion of the lesio n and sampl ing techn ique. Chucho nued regul ar scree shorty is the best metho d of cance r preve ntion . If repor reagan cytol ogic findi ng do not corre late with physi oksana and/o r histo rical findi ngs, furth er inves tigat ion is recom chun d, as clini javier warra nted. Not Available [facility] (Lab) [address], [place], [address], 01/18/2022 14:18:08 03/25/20 23 03/25/2023 IMAGE GUIDE D PAP AND HPV REGAR DLESS image guided Pap, HPV regardless of Pap result SEE RESULT S BELOW CASE REPOR T: Cytol ogy Gynec ologi oksana Repor t Case: [id number] Autho junaid nur Provi deniz: Ja Field Colle cted: 03/25 1440 MASTER MERCHANDISER Order ing Locat ion: [place] Patho brendon Recesveta jett: 03/28 0615 First Scree n: Jade Brunson , CT Speci men: Scree shorty Pap - Image d, Cervi x STATE MENT OF ADEQU ACY: Satis facto ry for evalu ation Trans forma tion zone compo nent prese nt FINAL DIAGN OSIS: Negat guido for Intra epith elial Lescamryn bunch or Vani jim (NIL) . Elect bry oropeza frieda d by Jaed Brunson , CT on 2022 at 9:24 AM ----- ----- ----- ----- ----- ----- ----- ----- ----- ----- ----- ----- ----- ----- ----- ----- ----- ---- HPV RESUL TS: HPV mRNA E6/E7 : No HPV mRNA Detec reagan NOTE: This high risk HPV mRNA assay detec ts fourt een high- risk HPV types (16, 18, 31, 33, 35, 39, 45, 51, 52, 56, 58, 59, 66, 68) witho ut diffe renti ation . COMME NT: This speci men was revie wed by a Cytot echno logis t and/o r Patho logis t (as indic ated in this repor t) after evalu ation using the Thinp rep Imagi ng Syste m. CLINI [place] INFOR MATIO N: Menst rual Statu s: LMP (if appli cable ): Clini oksana Histo ry/Pr eviou s Pap: Type of Neopl guerda (if appli cable ): Signi fican t Clini oksana Findi ngs: Other Histo ry: Hormo valorie (if appli cable ): PAP EDUCA BRYAN L NOTE: The Pap Test is a scree shorty test with an inher ent false negat guido rate. Liqui d-bas ed sampl ing may decre ase, but will not elimi jatin, false negat guido resul ts. A negat guido resul t does not precl ude the prese nce and/o r devel opmen t of disea se, since the prese nce of abnor mal cells in the sampl e depen ds on the locat ion of the lesio n and sampl ing techn ique. Chucho nued regul ar scree shorty is the best metho d of cance r preve ntion . If repor reagan cytol ogic findi ng do not corre late with physi oksana and/o r histo rical findi ngs, furth er inves tigat ion is recom chun d, as clini javier elliott nted. Not Available [facility] (Lab) [address], [place], [address], 03/29/2023 10:27:57 12/04/19 25 12/03/2024 IMAGE GUIDE D PAP AND HPV REGAR DLESS image guided Pap, HPV regardless of Pap result SEE RESULT S BELOW CASE REPOR T: Cytol ogy Gynec ologi oksana Repor t Case: [id number] Autho junaid boom Provi deniz: Kristy Garcia, MASTER MERCHANDISER Colle cted: 12/03 1302 Order ing Locat ion: [place] Patho logy Recei jett: 12/04 0708 First Scree n: Andre z, Tian am, CT Rescr een: Sharee Torres Speci men: Scree shorty Pap - Image d, Vagin a STATE MENT OF ADEQU ACY: UNSAT ISFAC TORY SPECI MEN ----- ----- ----- ----- ----- ----- ----- ----- ----- ----- ----- ----- ----- ----- ----- ----- ----- ---- FINAL DIAGN OSIS: Unsat isfac tory for evalu ation . Inade quate squam ous epith elial compo nent for diagn osis. Elect bry malave d by Sharee ye on 025 at 1250 AEROSPACE ENGINEER OFFICER ARMAMENT ----- ----- ----- ----- ----- ----- ----- ----- ----- ----- ----- ----- ----- ----- ----- ----- ----- ---- HPV RESUL TS: HPV mRNA E6/E7 : No HPV mRNA Detec reagan NOTE: This high risk HPV mRNA assay detec ts fourt een high- risk HPV types (16, 18, 31, 33, 35, 39, 45, 51, 52, 56, 58, 59, 66, 68) witho ut diffe renti ation . COMME NT: This speci men was revie wed by a Cytot echno logis t and/o r Patho logis t (as indic ated in this repor t) after evalu ation using the Thinp rep Imagi ng Syste m. CLINI [place] INFOR MATIO N: Menst rual Statu s: LMP (if appli cable ): Clini oksana Histo ry/Pr eviou s Pap: Type of Neopl guerda (if appli cable ): Signi fican t Clini oksana Findi ngs: Other Histo ry: Hormo valorie (if appli cable ): Not Available [facility] (Lab) [address], [place], [address], 12/06/2024 13:54:53 12/25/19 25 12/24/2024 IMAGE GUIDE D PAP AND HPV REGAR DLESS image guided Pap, HPV regardless of Pap result SEE RESULT S BELOW CASE REPOR T: Cytol ogy Gynec ologi oksana Repor t Case: [id number] Autho junaid nur Provi deniz: Kristy Garcia, DAVID Colle cted: 12/24 1024 Order ing Locat ion: [place] Patho [place]y Recei jett: 12/25 1109 First Scree n: Noora ni, Moham ed, CT Speci men: Scree shorty Pap - Image d, Vagin a STATE MENT OF ADEQU ACY: Satis facto ry for evalu ation Parti johnna mendez ring blood prese nt. ----- ----- ----- ----- ----- ----- ----- ----- ----- ----- ----- ----- ----- ----- ----- ----- ----- ---- FINAL DIAGN OSIS: Negat guido for Intra epith elial Lesio n or Vani jim (NIL) . Atrop hic cell alexander alcantara. Elect bry malave d by Ina mcdonough, CT on 2024 at 2030 CDT ----- ----- ----- ----- ----- ----- ----- ----- ----- ----- ----- ----- ----- ----- ----- ----- ----- ---- HPV RESUL TS: HPV mRNA E6/E7 : No HPV mRNA Detec reagan NOTE: This high risk HPV mRNA assay detec ts fourt een high- risk HPV types (16, 18, 31, 33, 35, 39, 45, 51, 52, 56, 58, 59, 66, 68) witho ut diffe renti ation . COMME NT: This speci men was revie wed by a Cytot echno logis t and/o r Patho logis t (as indic ated in this repor t) after evalu ation using the Thinp rep Imagi ng Syste m. CLINI [place] INFOR MATIO N: Menst rual Statu s: LMP (if appli cable ): Clini oksana Histo ry/Pr eviou s Pap: Type of Neopl guerda (if appli cable ): Signi fican t Clini oksana Findi ngs: Other Histo ry: Hormo valorie (if appli cable ): PAP EDUCA BRYAN L NOTE: The Pap Test is a scree shorty test with an inher ent false negat guido rate. Liqui d-bas ed sampl ing january decre ase, but will not elimi jatin, false negat guido resul ts. A negat guido resul t does not precl ude the prese nce and/o r devel opmen t of disea se, since the prese nce of abnor mal cells in the sampl e depen ds on the locat ion of the lesio n and sampl ing techn ique. Chucho nued regul ar scree shorty is the best metho d of cance r preve ntion . If repor reagan cytol ogic findi ng do not corre late with physi oksana and/o r histo rical findi ngs, furth er inves tigat ion is recom chun d, as clini javier elliott nted. Not Available [facility] (Lab) [address], [place], [address], 12/27/2024 21:35:36 Result Notes None recorded. Problems Name Problem SNOMED Code Status Onset Date Resolution Date Notes Provider Name and Address Organization Details Recorded Time Screenin g for malignan t neoplasm of rectum Completed 201707/07/2021 Encounter for screening for malignant neoplasm of rectum;Pr actice ID: 0001 Myesha rodriguez [facility] 11:51:32 Evaluati on finding Completed 201707/07/2021 Hematuria , unspecifi ed;Practi ce ID: 0001 Myesha rodriguez [facility] 11:51:[address] Concept Completed 201807/07/2021 Encntr for general adult medical exam w/o abnormal findings; Practice ID: 0001 Myesha rodriguez [facility] 11:51:[address] Concept Completed 201807/07/2021 Encntr for development chemist exam (general) (routine) w/o abn findings; Practice ID: 0001 Myesha rodriguez [facility] 11:51:35 Blood leukocyt e number above referenc e range [id number] Completed 201807/07/2021 Elevated white blood cell count, unspecifi ed;Practi ce ID: 0001 Myesha rodriguez [facility] 11:51:12 Urinary tract infectio us disease [id number] Completed 201807/07/2021 Urinary tract infection , site not specified ;Practice ID: [address] [facility] 11:51:40 Acute vaginiti s [id number] Completed 201807/07/2021 Acute vaginitis ;Practice ID: 0001 Myesha Carmona [facility] 11:51:00 Body mass index 30+ - obesity [id number] Completed 201607/07/2021 Body mass index (BMI) 34.0-34.9 , adult;Rec orded Elsewhere : No Locati on: [facility] So urce: EHR Chron ic: N Practic e ID: 0001 Bill able Time: 04:30:[address] [facility] 11:51:03 Breast cancer genetic marker of misty lal detected [id number] Completed 201307/07/2021 Carrier of a gene that makes it more likely to get breast cancer;Re corded Elsewhere : No Locati on: [facility] So urce: EHR Chron ic: N Practic e ID: 0001 Bill able Time: 02:45:[address] [facility] 11:51:04 Primary malignan t neoplasm of female breast [id number] Completed 201307/07/2021 Breast cancer;Re corded Elsewhere : No Locati on: [facility] So urce: EHR Chron ic: N Practic e ID: 0001 Bill able Time: 02:00:[address] [facility] 11:51:24 Pre-surg alicia evaluati on Completed 201307/07/2021 Pre-opera tive examinati on, unspecifi ed;Record ed Elsewhere : No Locati on: [facility] So urce: EHR Chron ic: N Practic e ID: 0001 Bill able Time: 10:15:00 AM Myesha rodriguez [facility] 11:51:22 Postoper ative follow-u p visit Completed 201307/07/2021 Follow-up examinati on, following unspecifi ed surgery;R ecorded Elsewhere : No Locati on: [facility] So urce: EHR Chron ic: N Practic e ID: 0001 Bill able Time: 02:45:[address] [facility] 11:51:21 Adult health examinat ion Completed 201307/07/2021 ROUTINE MEDICAL EXAM;Dawood rded Elsewhere : No Locati on: [facility] So urce: EHR Chron ic: N Practic e ID: 0001 Bill able Time: 04:30:[address] [facility] 11:51:01 Genetic predispo sition [id number] Completed 201307/07/2021 Genetic susceptib ility to malignant neoplasm of ovary;Rec orded Elsewhere : No Locati on: [facility] So urce: EHR Chron ic: N Practic e ID: 0001 Bill able Time: 11:30:[address] [facility] 11:51:09 Malignan t tumor of breast Completed 201407/07/2021 Cancer of lt female breast;Re corded Elsewhere : No Locati on: [facility] So urce: EHR Chron ic: N Practic e ID: 0001 Bill able Time: 04:00:[address] [facility] 11:51:14 Proteinu rich 48999803 Completed 201207/07/2021 Proteinur ia;Practi ce ID: 0001 [facility]:51:27 Speciali kaleb medical examinat ion Completed 201207/07/2021 Routine gynecolog ical examinati on;Practi ce ID: 0001 [facility] 11:51:37 Screenin g for malignan t neoplasm of cervix Completed 201207/07/2021 Pap Smear;Pra ctice ID: 0001 Myesha Carmona [facility] 11:51:30 Radiolog y result abnormal [id number] Completed 201307/07/2021 Thickened Endometri al Stripe;Pr actice ID: 0001 Myesha Carmona [facility] 11:51:28 Polyp of corpus uteri 60307562 Completed 201307/07/2021 Polyp Endometri al Uterus;Pr actice ID: 0001 Myesha Carmona [facility] 11:51:19 Subserou s leiomyom a of uterus 48781874 Completed 201307/07/2021 Subserous leiomyoma of uterus;Pr actice ID: 0001 Myesha Carmona [facility] 11:51:38 Noninfla mmatory disorder s of the ovary, fallopia n tube and broad ligament Completed 201307/07/2021 Other noninflam matory disorders of ovary, fallopian tube, and broad ligament; Practice ID: 0001 Myesha Carmona [facility] 11:51:16 Overweig ht [id number] Completed 201307/07/2021 Overweigh t;Practic e ID: 0001 Myesha Carmona [facility] 11:51:18 Herpesvi ral vesicula r dermatit is [id number] Completed 201607/07/2021 Herpesvir al vesicular dermatiti s;Practic e ID: 0001 Myesha Carmona [facility] 11:51:[address] Concept Completed 201707/07/2021 Encounter for general adult medical exam w abnormal findings; Practice ID: 0001 Myesha Carmona [facility] 11:51:25 Depressi ve disorder 13170179 Completed 201707/07/2021 Depressio n NOS;Recor ded Elsewhere : No Locati on: [facility] So urce: EHR Chron ic: N Practic e ID: 0001 Bill able Time: 08:30:00 AM Myesha Carmona [facility] 11:51:06 Problem Notes None recorded. Procedures Surgical History Date Name Laterality Status Provider Name and Address Organization Details Recorded Time 024 Most Recent Bone Density completed Mitzi Agee [facility] 12/03/2024 11:48:44 021 completed Phyllis Gooden [facility] 03/25/2023 12:22:05 021 Date of Last Colonoscopy completed [facility] 01/11/2022 10:08:29 015 completed [facility] 07/07/2021 11:56:29 014 arthroscopy completed [facility] 03/21/2020 14:08:36 014 arthroscopy completed [facility] 03/21/2020 14:08:54 [address] [facility]/21/2020 14:09:06 014 Total Hysterectomy completed [facility] 03/21/2020 14:10:04 014 Dilation and Curettage completed [facility] 03/21/2020 14:10:59 013 Date of Last Mammogram completed Phyllis Abner [facility] 03/25/2023 12:22:05 013 excision of bunion completed [facility] 03/21/2020 14:08:18 010 excision of bunion completed [facility] 03/21/2020 14:08:02 002 Endometrial Ablation completed [facility] 03/21/2020 14:07:47 997 section completed [facility] 03/21/2020 14:07:36 992 Cholecystectomy completed [facility] 03/21/2020 14:07:12 992 Appendectomy completed [facility] 03/21/2020 14:07:24 984 tonsillectomy and adenoidectomy completed [facility] 03/21/2020 14:06:59 Total Hysterectomy completed Myesha Carmona [facility] 07/07/2021 14:19:31 Carpal tunnel surgery completed [facility] 03/21/2020 14:06:45 salpingo-oophorect yamileth completed [facility] 03/21/2020 14:10:28 Imaging Results None recorded. Procedure Notes None recorded. Medical Equipment None Reported. Allergies Allergen ID Allergen Name Allergen Category Reaction Reaction Severity Criticality Documentation Date Start Date Code Code System Note Provider Name and Address Organization Details Recorded Time 1062 codeine medicatio n Not available Not available Not available 03/21/2020 2670 RxNorm Crystal Leravatan narda [facility] 0 14:03:05 42393 Substance with sulfonami de structure and antibacte rial mechanism of action (substanc e) medicatio n Not available Not available Not available 12/03/2024 36796 8003 SNOMED Mitzi Agee [facility] 5 11:49:02 Medications Name Sig Start Date Stop Date Status Note LastModified by Organization Details LastModified Time celecoxib 200 mg capsule TAKE 1 CAPSULE BY MOUTH TWICE A DAY 12/03 completed Not Available Not Available Not Available anastrozo le 1 mg tablet take 1 tablet by oral route every day 06/29 completed Prescrib ed Elsewher e: Yes Loca tion: [facility] M odify By: dandre riddleuntkristie DateTime : 06/05/20 14 02:45:00 PM Not Available Not Available Not Available prednison e 10 mg tablet 07/07 completed Not Available Not Available Not Available tizanidin e 2 mg tablet 03/25 completed Not Available Not Available Not Available azithromy tom 250 mg tablet TAKE 2 TABLETS BY MOUTH TODAY, THEN TAKE 1 TABLET DAILY FOR 4 DAYS DIRECTED 12/03 completed Not Available Not Available Not Available valacyclo vir 1 gram tablet TAKE 1 TABLET BY MOUTH EVERY DAY WITH MEALS FOR 5 DAYS 12/03 completed Not Available Not Available Not Available hydrocodo ne 5 mg-acetam inophen 325 mg tablet TAKE 1 TO 2 TABLETS BY MOUTH EVERY 4 HOURS NEEDED FOR PAIN. DO NOT EXCEED 8 TAB/DAY 03/25 completed Not Available Not Available Not Available ondansetr on HCl 4 mg tablet TAKE 1 TABLET (4 MG TOTAL) BY MOUTH EVERY 8 HOURS NEEDED FOR NAUSEA OR VOMITING FOR UP TO 12 DAYS 12/03 completed Not Available Not Available Not Available prednison e 20 mg tablet TAKE 1 TABLET BY MOUTH EVERY DAY 07/07 completed Not Available Not Available Not Available lidocaine 4 % topical cream Apply 1 applicat ion 4 times a day by topical route as needed for 7 days. 12/03 completed Not Available Not Available Not Available Pyridium 200 mg tablet take 1 tablet by oral route 2 times every day after meals as needed 07/07 completed Prescrib ed Elsewher e: No Locat ion: [facility] odify By: karen sorto DateTime : 06/29/20 19 10:45:00 AM Not Available Not Available Not Available Diflucan 150 mg tablet take 1 tablet by oral route today and repeat in 3 days. 07/07 completed Prescrib ed Elsewher e: No Locat ion: [facility] odify By: [email or web address] Carmen jaeger DateTime : 08/27/20 03:00:00 PM Not Available Not Available Not Available amoxicill in 500 mg tablet take 1 tablet by oral route 3 times every day for 10 days 01/06 completed Prescrib ed Elsewher e: No Locat ion: [facility] odify By: chelita jackson DateTime : 12/29/19 17 01:50:03 PM Not Available Not Available Not Available ondansetr on 8 mg disintegr ating tablet TAKE 1 TABLET BY MOUTH EVERY 8 HOURS NEEDED FOR NAUSEA OR VOMITING . (INSURAN CE ALLOWS 18/ DAYS 12/03 completed Not Available Not Available Not Available ketorolac 10 mg tablet TAKE ONE TABLET ORALLY EVERY 8 HOURS NEEDED FOR PAIN FOR 5 DAYS 03/25 completed Not Available Not Available Not Available alprazola m 0.25 mg tablet 01/11 completed Not Available Not Available Not Available Metrogel Vaginal 0.75 % (37.5 mg/5 gram) insert 1 applicat orful by vaginal route every day at bedtime 09/10 completed Prescrib ed Elsewher e: No Locat ion: [facility] odify By: elma herrera DateTime : 05/02/20 14 10:15:00 AM Not Available Not Available Not Available dicyclomi ne 20 mg tablet 01/11 completed Not Available Not Available Not Available benzonata te 100 mg capsule TAKE 1 - 2 TABLETS BY MOUTH 3 TIMES DAILY NEEDED FOR COUGH AND/OR SORE THROAT. 01/11 completed Not Available Not Available Not Available cephalexi n 500 mg capsule 07/07 completed Not Available Not Available Not Available oseltamiv ir 75 mg capsule TAKE 1 CAPSULE BY MOUTH TWICE A DAY FOR 5 DAYS 12/03 completed Not Available Not Available Not Available Cipro 500 mg tablet take 1 tablet by oral route every 12 hours 12/25 completed Prescrib ed Elsewher e: No Locat ion: [facility] odify By: dandre riddleunter DateTime : 02/29/20 18 10:24:13 AM Not Available Not Available Not Available docusate sodium 100 mg capsule TAKE 1 CAPSULE BY MOUTH TWICE A DAY 01/11 completed Not Available Not Available Not Available amoxicill in 250 mg capsule take 1 capsule by oral route every 8 hours 05/02 completed Prescrib ed Elsewher e: Yes [facility] By: lyle Ruth ncounter DateTime : 03/25/20 14 09:00:00 AM Not Available Not Available Not Available Valtrex 500 mg tablet take 1 tablet by oral route every 12 hours 12/19 completed Prescrib ed Elsewher e: No Locat ion: [facility] odify By: elma riddleuntkristie DateTime : 02/18/20 17 08:30:00 AM Not Available Not Available Not Available Transderm -Scop 1 mg over 3 days transderm al patch apply 1 patch by transder mal route 05/15 completed Prescrib ed Elsewher e: No Locat ion: [facility] odify By: elma riddleunter DateTime : 05/02/20 14 10:15:00 AM Not Available Not Available Not Available azelastin e 137 mcg (0.1 %) nasal spray 01/11 completed Not Available Not Available Not Available albuterol sulfate HFA 90 mcg/actua tion aerosol inhaler INHALE 2 PUFFS EVERY 6 HOURS NEEDED FOR WHEEZING active Not Available Not Available No t Available Colace 50 mg capsule take 1 capsule by oral route every day at bedtime as needed 07/02 completed Prescrib ed Elsewher e: Yes Loca tion: [facility] odify By: tremaine jaeger DateTime : 03/25/20 14 09:00:00 AM Not Available Not Available Not Available Bactrim DS 800 mg-160 mg tablet take 1 tablet by oral route every 12 hours 12/25 completed Prescrib ed Elsewher e: No Locat ion: [facility] odify By: dandre riddleunter DateTime : 03/01/20 18 08:45:01 AM Not Available Not Available Not Available Calcium 500 + D 500 mg-5 mcg (200 unit) tablet 12/25 completed Prescrib ed Elsewher e: Yes Loca tion: [facility] odify By: dandre riddleunter DateTime : 12/08/19 17 04:30:00 PM Not Available Not Available Not Available cyclobenz aprine 5 mg tablet TAKE 1 TABLET BY MOUTH TWICE A DAY NEEDED FOR MUSCLE SPASM FOR 2 WEEKS 03/25 completed Not Available Not Available Not Available nitrofura ntoin monohydra te/macroc rystals 100 mg capsule TAKE 1 CAPSULE BY MOUTH TWICE A DAY FOR 7 DAYS 12/03 completed Not Available Not Available Not Available Centrum Silver 07/07 completed Not Available Not Available Not Available Vitamin D3 07/07 completed Not Available Not Available Not Available Zyrtec 07/07 completed Not Available Not Available Not Available multivita min active Not Available Not Available Not Available Vitamin D3 10 mcg (400 unit) capsule active Not Available Not Available Not Available Pristiq 50 mg tablet,ex tended release take 1 tablet by oral route every day 08/14 completed Prescrib ed Elsewher e: Yes Loca tion: [facility] odify By: kareen Encount er DateTime : 09/06/20 13 10:30:00 AM Not Available Not Available Not Available Pristiq 07/07 completed Not Available Not Available Not Available diclofena c 1 % topical gel 01/11 completed Not Available Not Available Not Available Tart Castillo 30 mg-250 mg-75 mg-75 mg capsule 12/25 completed Prescrib jethro ruth: Yes Loca tion: Mary ruth [facility] Gloria robert By: dandre herrera DateTime : 12/08/19 04:30:00 PM Not Available Not Available Not Available Zyrtec 10 mg capsule active Not Available Not Available Not Available calcium 1,000 mg (as carbonate )-vitamin D3 20 mcg (800 unit) tablet Take by oral route. active Not Available Not Available No t Available Breo Ellipta 100 mcg-25 mcg/dose powder for inhalatio n USE 1 INHALATI ON DAILY 01/11 completed Not Available Not Available Not Available Centrum Silver Women 8 mg iron-400 mcg-50 mcg tablet 01/11 completed Not Available Not Available Not Available Shingrix (PF) 50 mcg/0.5 mL intramusc ular suspensio n, kit 07/07 completed Not Available Not Available Not Available Afluria Qd 2018- (36 mos up)(PF)60 mcg (15 mcg x4)/0.5 mL IM syringe 07/07 completed Not Available Not Available Not Available Vitals Date Recorded Body height Body mass index (BMI) Body weight Systolic And Diastolic Provider Name and Address Organization Details Last Updated DateTime 12/03/2024 160.02 cm 32.2 kg/m2 78857.81 g 125/73 mm[Hg] [facility] 12/03/2024 11:48:27 Date Recorded Body height Body mass index (BMI) Body weight Systolic And Diastolic Provider Name and Address Organization Details Last Updated DateTime 12/24/2024 160.02 cm 32.6 kg/m2 91343 g 112/70 mm[Hg] Mitzi Agee [facility] 12/24/2024 09:18:41 Date Recorded Body weight Systolic And Diastolic Provider Name and Address Organization Details Last Updated DateTime 01/11/2022 25729.74 g 122/80 mm[Hg] Myesha Carmona [facility] 01/11/2022 10:08:06 Date Recorded Body height Body mass index (BMI) Body weight Systolic And Diastolic Provider Name and Address Organization Details Last Updated DateTime 03/25/2023 160.02 cm 34.7 kg/m2 46335.1 g 122/82 mm[Hg] Phyllis Gooden [facility] 03/25/2023 12:21:24 Date Recorded Body weight Systolic And Diastolic Provider Name and Address Organization Details Last Updated DateTime 07/07/2021 31346.14 g 114/74 mm[Hg] Myesha Carmona [facility] 07/07/2021 14:19:09 Social History Question Answer Notes LastModified by Organizat ion Details LastModified Time Tobacco Smoking Status Never Smoker Janny Smith michael, [facility] 03/25/2023 12:11:45 Do You Have An Advance Directive? No Information n ot available 07/07/2021 Are You Blind Or Do You Have Difficulty Seeing? No Information n ot available 07/07/2021 What Is Your Level Of Caffeine Consumption? Moderate Information not available 07/07/2021 How Much Tobacco Do You Chew? None Information not available 07/07/2021 In The 14 Days Before Symptom Onset, Have You Had Close Contact With A Laboratory-confirm ed COVID-19 While That Case Was Ill? No Information n ot available 07/07/2021 In The 14 Days Before Symptom Onset, Have You Had Close Contact With A Person Who Is Under Investigation For COVID-19 While That Person Was Ill? No Information not available 07/07/2021 Have You Been To An Area Known To Be High Risk For COVID-19? No Information not available 07/07/2021 Are You Deaf Or Do You Have Serious Difficulty Hearing? Yes [email or web address] Information not available 12/03/2024 What Type Of Diet Are You Following? REGULAR Information n ot available 07/07/2021 What Is The Highest Grade Or Level Of School You Have Completed Or The Highest Degree You Have Received? [id number] Information not available 07/07/2021 Are There Any Guns Present In Your Home? No Information not available 07/07/2021 Do You Use Protection During Sex? No Information not available 07/07/2021 Do You Use Your Seat Belt Or Car Seat Routinely? Yes Information not available 07/07/2021 Do You Have Smoke And Carbon Monoxide Detectors In Your Home? Yes Information not available 07/07/2021 How Much Tobacco Do You Smoke? No Information not available 07/07/2021 Do You Use Sunscreen Routinely? Yes Information not available 07/07/2021 Have You Used IV Drugs? No Information not available 07/07/2021 Do You Have Difficulty Walking Or Climbing Stairs? No [email or web address] Information not available 03/25/2023 Sex: Unknown Functional Status Question Answer Note LastModified by Organizat ion Details LastModified Time Do you use any illicit or recreational drugs? No Information not available 07/07/2021 What is your level of alcohol consumption? None Information not available 07/07/2021 Are you able to walk? YESWOREST Information not available 07/07/2021 Are you able to care for yourself? 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 No [email or web address] Information not available 03/25/2023 What is your exercise level? Occasional Information not available 07/07/2021 Mental Status Question Answer Note LastModified by Organization D etails LastModified Time Do you feel stressed (tense, restless, nervous, or anxious, or unable to sleep at night)? [id number] Information not available 07/07/2021 Family History Relationship Description Onset Age of this Age Resolved Age Notes LastModified by Organization Details LastModified Time Mother Family history of breast cancer [email or web address] Not available 12/02 09:11:59 Mother Hypertensive disorder [email or web address] Not available 2020 14:12:55 Mother Uterine prolapse [email or web address] Not available 12/02 09:11:59 Mother Malignant tumor of breast Not available 2021 10:08:10 Mother Heart disease [email or web address] Not available 2024 09:21:10 Maternal Aunt Family history of breast cancer [email or web address] Not available 12/02 09:11:59 Maternal Aunt Screening for malignant neoplasm of colon [email or web address] Not available 12/02 09:11:59 Maternal Aunt Family history of breast cancer [email or web address] Not available 2024 09:20:23 Father Family history of malignant neoplasm of liver [email or web address] Not available 12/02 09:11:59 Father Peptic ulcer [email or web address] Not avai lable 12/24/2024 09:22:00 Father Malignant tumor of stomach [email or web address] Not available 2024 09:22:16 Father Myocardial infarction [email or web address] Not available 12/24 09:22:46 Paternal Uncle Diabetes mellitus [email or web address] Not available 2022 12:21:32 Paternal Grandmother Family history of breast cancer [email or web address] Not available 2024 09:20:36 Notes:CANCER RISK FORM COMPL ETE 05/13/2022 Medical History Condition Response Thyroid Problems Y Breast Cancer Y Gynecological History Statement/Question Response Date of Last Mammogram 09/10/2013 N Was last menstrual period normal N STIs/STDs Y 09/15/2015 If Post Menopausal, Age at Menopause 52 Date of Last Colonoscopy 07/30/2021 Abnormal Pap N On BCP's at Conception? N HPV Vaccine N Duration of Flow (days) 6 Current Control Method Hysterectom y 14 Age at First Child 30 Are cycles usually normal N Frequency of Cycle (Q days) 28 Most Recent Bone Density 06/01/2024 Sexually Active? N Menses Monthly N Date of DEXA bone scan 06/01/2024 Age of first menstrual cycle 13 Date of Last Pap Smear Sexual Problems? N LMP Unknown 07/30/2021 N Obstetrics History GPAL:G 2 P 2 0 0 2 Type Value Full Term 2 Living 2 Total 2 Past Encounters Encounter ID Performer Location Encounter Start Date Encounter Closed Date Diagnosis/Indication Diagnosis SNOMED-CT Code Diagnosis ICD10 Code Diagnosis Note [id number] Myesha Amor MD [place] [address],[place] [address] 03/25/2020 10:50:53 03/25/2020 11:42:39 Gynecologic examination 07983492 Z01.419 We agreed to do periodic paps s/p hysterecto my she had for +BRCA and h/o breast cancer. She no longer needs breast imaging s/p bilateral mastectomy . Colonoscop y normal 2012 [id number] Kristen Yates [facility] [address],[place] [address] 06/06/2020 11:49:24 06/08/2020 17:58:14 [id number] Nydia Nunez [place] [address],[place] [address] 07/07/2021 14:11:27 07/07/2021 14:48:49 Urinary symptoms 610108306 R39.9 Will send urine out.Rx sentWill call with results. Time spent in visit is a total of 15 mins with at least 50% of visit consisting of counseling and review of plan of care.Addit ional precaution mckinley measures were taken to minimize potential exposure to the Covid-19 virus during this patient s visit, including available hand thermoforming operator upon arrive, temperatur e check and being asked a series of screening questions. All staff wore face coverings during this encounter, as well as provided additional cleaning and sanitizing of all surfaces, including counter-to ps, pens, chairs, door handles, light switches, etc, prior to and following the patient s visit. Patient is to contact office or go to nearest ED/Urgent care if fever >/= 100.1, pain, excessive bleeding, unusual drainage or swelling in area of concern; or experienci ng worsening sx's or new onset of concerning sx's. Understand ing verbalized . [place] questions [place]. [id number] Nydia Nunez [facility] [address],[place] [address] 01/11/2022 09:51:25 01/11/2022 10:46:58 Gynecologic examination 32571568 Z01.419 Take Calcium with Vitamin D 12-1500mg daily. Do monthly self breast exams. It is advised to get annual flu shot in the fall and she could obtain at [facility] or [facility] If you haven't received the Tdap vaccine in the last 10 years you should obtain one as well. Have mammogram yearly, bone density every 2-3 years and colonoscop y every 5-10 years depending on findings and history. Engage in daily exercise of low impact aerobic exercise 45-60 minutes 4-5 times weekly. Avoid tobacco and illicit drugs as well as using moderation with alcohol intake less than 1-2 8 oz beverages daily. This lifestyle behavior pattern will lead to less health conditions and longer life span. If BMI greater than 25 weight watchers or dietary consult advised. Questions have been answered. Patient appears to understand instructio ns, but if you have any further questions call or respond to this email Pap/hpv sent (Full hysterecto my for BRCA-1+)ST D Screen declinedGe netic Screen completed 2013Colon Screen UTD PCP exa Screen UTD outin e Labs UTD PCP 2021Mammo- not needed. Double mastectomy 2013. Follows up with onc doc yearly. [id number] Nydia Nunez [facility] [address],[place] [address] 03/25/2023 12:12:56 03/25/2023 13:21:32 Gynecologic examination 57768435 Z01.419 Z11.51 Take Calcium with Vitamin D 12-1500mg daily. Do monthly self breast exams. It is advised to get annual flu shot in the fall and she could obtain at [facility] or [facility] ([facility] If you haven't received the Tdap vaccine in the last 10 years you should obtain one as well. Have mammogram yearly, bone density every 2-3 years and colonoscop y every 5-10 years depending on findings and history. Engage in daily exercise of low impact aerobic exercise 45-60 minutes 4-5 times weekly. Avoid tobacco and illicit drugs as well as using moderation with alcohol intake less than 1-2 8 oz beverages daily. This lifestyle behavior pattern will lead to less health conditions and longer life span. If BMI greater than 25 weight watchers or dietary consult advised. Questions have been answered. Patient appears to understand instructio ns, but if you have any further questions call or respond to this email Pap/hpv sent (Full hysterecto my for BRCA-1+)ST D Screen declinedGe netic Screen completed 2013Colon Screen UTD PCP exa Screen UTD outin e Labs UTD PCP 2021Mammo- not needed. Double mastectomy 2013. Follows up with onc doc yearly. Genital he rpes simplex [id number] A60.9 Outbreak seen on examRx sent [id number] CHRISTIAN Curry [place] [address] [address] 12/03/2024 11:32:19 12/03/2024 14:09:15 Gynecologic examination [id number] Z01.419 Z11.51 WWEPap - done todaySTI screen - declinedMa mmogram - follows with oncology yearlyColo n cancer screening - UTD/ordere d through PCPDexa - UTD/PCPRou jeanette labs - UTD/PCPRTC in 1 yr or sooner if needed Do monthly self breast exams.It is advised to get annual flu shot in the fall and she could obtain at local pharmacy. If you haven't received the Tdap vaccine in the last 10 years you should obtain one as well.Have mammogram yearly, bone density every 2-3 years and stay up to date on colon cancer screening. Engage in regular exercise. Avoid tobacco and illicit drugs. This lifestyle behavior pattern will lead to less health conditions and longer life span. If BMI greater than 25 dietary consult advised.Qu estions have been answered. [id number] CHRISTIAN Curry [place] [address] [address] 12/24/2024 09:11:50 12/24/2024 11:07:30 Screening for malignant neoplasm of vagina 369022775 Z12.72 NO CHARGE VISIT repeat pap done Gynecologi c examination 53408122 Z01.419 Health Concerns Section Related Observation LastModified by Organization Detai ls LastModified Time None Recorded Concern Status LastModified by Organization Details LastModified Time None Recorded Advance Directives Directive N: Payers Encounter Date Sequence Insurance Name Policy Number Policy Campbell Covered Member ID Campbell Member ID Guarantor Name 07/07/2021 1 [employer] - DOS PRIOR TO 21 - [facility] B[facility] [id number] Lizy Ramos [id number] Lizy Haydens 01/11/2022 1 [employer] - NOW (INDEMNITY) [id number] Lizy Haydens [id number] Lizy Moreno Severs 03/25/2023 1 [employer] - NOW (INDEMNITY) [id number] Lizy Haydens [id number] Lizy Haydens 12/03/2024 1 [employer] (MEDICARE REPLACEMENT/ ADVANTAGE - PPO) [id number] 1 Lizy Haydens [id number] Lizy Haydens 12/24/2024 1 [employer] (MEDICARE REPLACEMENT/ ADVANTAGE - PPO) [id number] 1 Lizy Ramos [id number] Lizy Ramos Notes Date Note Type Note Provider Name and Address Organization Details Recorded Time 07/07/2021 text/html Here today for U TI sx's including urinary urgency & dysuria since tuesday which have progressively gotten worse. Neg abd painNeg flank pain+Some low back pain but has this daily from lower back issuesNeg N/V/F/D/C. Nydia Nunez DAVID- [address], [place], [address], [facility] 07/07/2021 14:44:01 01/11/2022 text/html Annual Motor Assembler Post-MenopausalRepor reagan bypatient.Menopausal Symptoms:no menopausal symptoms; normal vaginal lubrication Vaginal Bleeding:history of menopause having occurred; no history of post menopausal bleeding Urinary Symptoms:no hematuria; no incontinence; no nocturia; no urinary frequency Vulva:no genital lesion; no vulvar atrophy Vagina:normal vaginal discharge; no vaginal atrophy Breast:no breast lump; no nipple discharge; no breast pain Sexual Complaints:no sexual complaints Psychological Symptoms:no depression; no anxiety Preventive Measures:encourage regular mammograms starting age 40; encourage self breast examination; encourage regular exercise; encourage no tobacco use; history of recent colonoscopy CHRISTIAN Jansen-[facility] [address], [place], [address], [facility] 01/11/2022 10:28:50 03/25/2023 text/html Annual Motor Assembler Post-MenopausalRepor reagan bypatient.Menopausal Symptoms:no menopausal symptoms; normal vaginal lubrication Vaginal Bleeding:history of menopause having occurred; no history of post menopausal bleeding Urinary Symptoms:no hematuria; no incontinence; no nocturia; no urinary frequency Vulva:no genital lesion; no vulvar atrophy Vagina:normal vaginal discharge; no vaginal atrophy Breast:no breast lump; no nipple discharge; no breast pain Sexual Complaints:no sexual complaints Psychological Symptoms:no depression; no anxiety Preventive Measures:encourage regular mammograms starting age 40; encourage self breast examination; encourage regular exercise; encourage no tobacco use; history of recent colonoscopy Nydia Nunez, CHRISTIAN- [address], [place], [address], [facility] 03/25/2023 13:10:15 12/03/2024 text/html Annual Motor Assembler Post-MenopausalRepor reagan bypatient.Menopausal Symptoms:no menopausal symptoms; normal vaginal lubrication Vaginal Bleeding:history of menopause having occurred; no history of post menopausal bleeding Urinary Symptoms:no hematuria; no incontinence; no nocturia; no urinary frequency Vulva:no genital lesion; no vulvar atrophy Vagina:normal vaginal discharge; no vaginal atrophy Breast:no breast lump; no nipple discharge; no breast pain Sexual Complaints:no sexual complaints Psychological Symptoms:no depression; no anxiety Preventive Measures:encourage regular mammograms starting age 40; encourage self breast examination; encourage regular exercise; encourage no tobacco useNotes:64yo wweh/o TLH, BSO (she is (+) for BRCA 1)last pap 2022 - wnldexa 2023, osteopenia, managed by PCPcolonoscopy UTDfollows with oncology yearly, h/o breast cancer, has had double mastectomy CHRISTIAN Curry [address], [place], [address], [facility] 12/03/2024 13:46:01 12/24/2024 text/html 64yopresents for repeat pappap done 12/03/2024 unsat CHRISTIAN Curry [address], [place], [address], [facility] 12/24/2024 10:55:07 OBGyn Episode Ob Episode Information Episode Created Date Number of Fetuses Patient Bloodtype Patient rh Status Prepregnancy Weight lbs Domestic Partner Domestic Partner Phone Father Name Residential Pest Control Technician Status 03/25/20 20 1 CLOSED Fetus Data First Name Last Name Admitted to NICU Weight (g) Sex Living Outcome Pediatric Complications Fetus ID Race Codes Race Delivery Type F Full Term 2467 Primary Babak Calculation Initial Babak Date Initial Exam Date Initial Exam Provider Initial Ultrasound Date Last Menstrual Period Date Ultra Sound Weeks Gestation 0 Eighteen To Twenty Week Babak Update Ultra Sound Date Fundal Height At Umbil Quickening Date Ultra Sound Latest Weeks Gestation Final Babak Confirmed By Final Babak Confirmed Date Final Babak Date Ultra Sound Latest Days Gestation 0 0 Menstrual History Last Menstrual Date Menses Monthly On Bcp Conception Prior Menses Frequency Hcg Plus Date Menarche Onset Age Delivery Information Delivery Date Delivery Type Labor Anesthesia Weeks Gestation Incision Type Labor Labor Length Hrs Delivered By Post Complications Tubal Sterilization Discharge Date Comments 7 Discharge Information Feeding Method Contraceptive Method Maternal HG B and HCT Levels Ob Episode Information Episode Created Date Number of Fetuses Patient Bloodtype Patient rh Status Prepregnancy Weight lbs Domestic Partner Domestic Partner Phone Father Name Residential Pest Control Technician Status 03/25/20 20 1 CLOSED Fetus Data First Name Last Name Admitted to NICU Weight (g) Sex Living Outcome Pediatric Complications Fetus ID Race Codes Race Delivery Type [id number] Vaginal Delivery Babak Calculation Initial Babak Date Initial Exam Date Initial Exam Provider Initial Ultrasound Date Last Menstrual Period Date Ultra Sound Weeks Gestation 0 Eighteen To Twenty Week Babak Update Ultra Sound Date Fundal Height At Umbil Quickening Date Ultra Sound Latest Weeks Gestation Final Babak Confirmed By Final Babak Confirmed Date Final Babak Date Ultra Sound Latest Days Gestation 0 0 Menstrual History Last Menstrual Date Menses Monthly On Bcp Conception Prior Menses Frequency Hcg Plus Date Menarche Onset Age Delivery Information Delivery Date Delivery Type Labor Anesthesia Weeks Gestation Incision Type Labor Labor Length Hrs Delivered By Post Complications Tubal Sterilization Discharge Date Comments 1 Discharge Information Feeding Method Contraceptive Method Maternal HG B and HCT Levels
--- NOTE | 2025-02-26 07:30 | BM_PTH ---
PATIENT: Lizy Ramos LOC: [facility]#:[id number] AGE/SX: 64/F ROOM: RE02/26/[address]: Avila Carnes MD : 1960 BED: DIS: 02/26/2025 SPEC #: [id number] RECD: 02/26/25 10:24 STATUS: MARLA REQ #: [id number] FREDI: 02/26/25 07:[address]: Sunday Valenzuela DEPT: [facility] Bone Marrow RECD BY: Darrius Valdez ENTERED: 02/26/25 10:26 SP TYPE: Bone Marro YUNI DR: Juarez Corado, MD Avila Carnes MD Tissues: A - Bone Marrow Aspiration B - Bone Marrow Biopsy Procedures: Unstained Slides Hematoxylin and Eosin Stain Gross and Microscopic Level 4 Bone Marrow Smear Decalcification Iron Stain
[2025-02-26 08:17] VITALS: BP 122/67; PULSE 75; RESP 16; TEMP 36.8; O2SAT 100; BMI 33.7
[2025-02-26 08:54] LABS: Basophils Percent Auto 0.6 % (0.2-1.2); Eosinophils Percent Auto 0.6 % (0-4.4); Hematocrit 21.7 % (37.0-47.0); Hemoglobin 7.2 g/dL (12.0-15.0); Immature Granulocyte Absolute 0.01 K/mm3 (0.00-0.031); Immature Granulocyte Percent A 0.6 % (0-0.5); Immature Platelet Fraction Pct 7.2 % (0.9-11.2); Lymphocytes Absolute Auto 1.19 K/mm3 (0.9-3.2); Lymphocytes Percent Auto 75.8 % (18.3-44.2); Mean Corpuscular HGB Conc 33.2 g/dl (32-36); Mean Corpuscular Hemoglobin 38.5 pg (26-34); Mean Platelet Volume 13.8 fl (7.4-10.4); Monocytes Absolute Auto 0.1 K/mm3 (0.1-0.6); Monocytes Percent Auto 5.1 % (2.6-8.5); Neutrophils Absolute Auto 0.3 K/mm3 (1.3-6.7); Neutrophils Percent Auto 17.3 % (45.5-73.1); Platelet Count Result 38 k/mm3 (150-375); Red Blood Count 1.87 M/mm3 (4.2-5.4); Red Cell Distribution Width 14.6 % (11.5-14.5)
[2025-02-26 09:05] LABS: Prothrombin Time 13.3 Seconds (11.1-14.7)
[2025-02-26 09:22] LABS: White Blood Count 1.6 K/mm3 (4.5-10.0)
[2025-02-26 09:25] LABS: Platelet Estimate Decreased (Adequate)
[2025-02-26 09:26] LABS: Hypochromasia 1+; Macrocytosis 1+ (NORMAL); Schistocytes None Seen; Tear Drop Cells 1+
--- NOTE | 2025-02-26 09:29 | WPDMODSED ---
Moderate Sedation Note-Pt Data Patient Data Diagnosis: pancytopenia Present Complaint: pancytopenia Procedure to be performed/Plan: bone marrow biopsy Allergies Allergy/AdvReac Type Severity Reaction Status Date / Time Sulfa (Sulfonamide Allergy Mild Nausea and Verified 02/26/25 09:12 Antibiotics) Vomiting codeine AdvReac Mild Nausea Verified 02/26/25 09:12 Home Medications ?Medication ?Instructions ?Recorded ?Confirmed ?Type calcium carbonate 500 mg PO DAILY 02/26/21 02/26/25 History cetirizine 10 mg tablet 10 mg PO DAILY PRN Allergy Symptoms 02/26/21 02/26/25 History cholecalciferol (vitamin D3) 25 25 mcg PO DAILY 02/26/21 02/26/25 History mcg (1,000 unit) capsule multivitamin 1 tablet PO DAILY 02/26/21 02/26/25 History docusate sodium 100 mg capsule 100 mg PO BID #30 caps 03/16/21 02/22/25 Rx (Colace) Sedation/Anesthesia: No previous sedation/anesthesia problems (including family history). [facility] Past Medical History Medical History Anxiety and depression Breast cancer GERD (gastroesophageal reflux disease) HX: breast cancer Obesity UTI (urinary tract infection) Surgical History Surgical History H/O mastectomy H/O: hysterectomy History of bilateral breast implants History of bunionectomy History of cholecystectomy History of incisional hernia repair robotic assisted incisional hernia repair with mesh History of knee surgery History of partial thyroidectomy History of tonsillectomy Hx of appendectomy Family History Family History Mother Cerebrovascular accident Breast cancer Heart disease Hypertension Father , Age 57 Cancer Acute myocardial infarction Grandparent , Stomach Cancer Stomach cancer Grandparent , Age 77 from Emphysema No problems noted. Grandparent , Age 93 from Old Age No problems noted. Grandparent , Unknown Age or Cause No problems noted. Social History Social History Smoking status: Never smoker Second hand tobacco smoke exposure: Yes Alcohol intake: never Alcohol use details: VERY RARE Substance use: never Substance use type: does not use Living arrangements: with family Occupation/Education: retired Spiritual care concerns: No Mod Sed Physical Exam Physical Exam Pre Procedural Exam: Normal: Appearance, Throat, Lungs, Heart Rate and Heart Rhythm Hours since solid foods: 10 Hours since liquid intake: 10 Mallampati Classification: class II Internal Medicine - PN: Obj Da Vital Signs Vital Signs: Vital Signs - 24 hr 02/26/25 08:17 Temperature 98.2 F Pulse Rate 75 Respiratory Rate 16 Blood Pressure 122/67 Pulse Oximetry 100 Oxygen Delivery Room Air Labs 02/26/25 08:28 Labs: Laboratory Results - last 24 hr 02/26/25 08:28 WBC 1.6 L* RBC 1.87 L Hgb 7.2 L D Hct 21.7 L MCV 116.0 H MCH 38.5 H MCHC 33.2 RDW 14.6 H Plt Count 38 L D MPV 13.8 H Immature Gran % (Auto) 0.6 H Neut % (Auto) 17.3 L Lymph % (Auto) 75.8 H [place] % (Auto) 5.1 Eos % (Auto) 0.6 Baso % (Auto) 0.6 Lymph # (Auto) 1.19 [place] # (Auto) 0.1 Eos # (Auto) 0.0 Baso # (Auto) 0.0 Abs Immat Gran (auto) 0.01 Absolute Neuts (auto) 0.3 L Absolute Nucleated RBC 0.000 Band Neutrophils % Not Reportable Nucleated RBC % 0.0 Platelet Estimate Decreased % Immature Plt Fraction 7.2 Hypochromasia 1+ Macrocytosis 1+ Tear Drop Cells 1+ Schistocytes None seen PT 13.3 INR 1.0 ASA Classification/Sedation ASA Classification/Sedation ASA Class: III Emergent: No Risks: Risks, benefits and alternatives explained and patient/family accepted plan for sedation. Patient re-evaluated immediately prior to sedation.
[2025-02-26 10:00] VITALS: BP 108/88; PULSE 73; RESP 18; O2SAT 100
[2025-02-26 10:15] VITALS: BP 111/67; PULSE 70; RESP 14; O2SAT 96
[2025-02-26 10:30] VITALS: BP 113/68; PULSE 65; RESP 12; O2SAT 99
[2025-02-26 10:45] VITALS: BP 97/64; PULSE 67; RESP 14; O2SAT 98
[2025-02-26 11:00] VITALS: BP 97/71; PULSE 76; RESP 16; O2SAT 98
== END 2025-02-26 11:13 | disposition home or self-care (01) ==
PROVIDERS: PCP Internal Medicine; Referring Provider Internal Medicine Medical Oncology; Visit Provider Radiology Diagnostic Radiology
DX: C92.00 Acute myeloblastic leukemia, not having achieved remission (principal); D61.818 Other pancytopenia; D75.89 Other specified diseases of blood and blood-forming organs; K21.9 Gastro-esophageal reflux disease without esophagitis; F41.8 Other specified anxiety disorders; Z98.890 Other specified postprocedural states; Z90.49 Acquired absence of other specified parts of digestive tract; Z85.3 Personal history of malignant neoplasm of breast; Z80.3 Family history of malignant neoplasm of breast; Z80.0 Family history of malignant neoplasm of digestive organs; Z82.49 Family history of ischemic heart disease and other diseases of the circulatory system
CPT/HCPCS: 36415; 38222; 85025; 85055; 85610; 88305; 88311; 88313; J2250; J3010